=== PATIENT | female | born 1985 | race Caucasian/White ===

== ENCOUNTER 2024-10-21 08:44 | Outpatient (CLI) | payer OTHER, SELFPAY ==
[2024-10-21 09:03] LABS: Hematocrit 40.8 % (37.0-47.0); Hemoglobin 13.4 g/dL (12.0-15.0)
--- OUTSIDE RECORDS SUMMARY | 2024-10-21 09:08 | XMS_ITS | Patient Health Summary ---
Author Organization [facility] Address [address] [place] [address] Care Team Providers Care Practice Consultant Name Role Phone Sotero Krause MD Primary Care Provider [phone] Note from [facility],non-owned Affiliates and Associated Physician Practices is amultiple site organization consisting of ambulatory clinics and hospital sitesin [place], [place], [place] and [place]. This disclosure is being madepursuant to the Care Everywhere program and may not contain all information available regarding this patient. Last updated 18.[facility] Allergies * Chlorhexidine(Rash) -Medium Criticality * Tramadol(Nausea and/or Vomiting) * vicryl sutures [Other](Other) Medications * Be aware that medications may not be up to date on this document. Alwaysverify current medications with the patient. * escitalopram (Lexapro) 20 MG tablet Take 1 (one) tablet by mouth at bedtime * ARIPiprazole (Abilify) 5 MG tablet(Started 06/25/2024) Take 1 (one) tablet by mouth once daily * multivitamin daily tablet Take 1 (one) tablet by mouth daily with food Active Problems No known active problems Social History Tobacco Use Types Packs/Day Years Used Date Smoking Tobacco: Former Cigarettes Smokeless Tobacco: Never Comments:Quit 06/17/24 PHQ-2 Answer Date Recorded Patient Health Questionnaire-2 Score 3 06/29/2024 Hunger Vital Sign Answer Date Recorded Within the past 12 months, y ou worried that your food would run out before you got the money to buy more. Never true 06/29/20 24 Within the past 12 months, t he food you bought just didn't last and you didn't have money to get more. Never true 06/29/2024 Sex and Gender Information Value Date Recorded Sex Assigned at Not on file Gender Identity Not on file Sexual Orientation Not on file Last Filed Vital Signs Vital Sign Reading Time Taken Comments Blood Pressure 111/57 06/29/2024 3:06 PM PSYCHIATRIC ATTENDANT Pulse 74 06/29/2024 3:06 PM PSYCHIATRIC ATTENDANT Temperature 36.9 C (98.4 F) 06/29/2024 3:06 PM PSYCHIATRIC ATTENDANT Respiratory Rate - - Oxygen Saturation 99% 06/29/2024 3:06 PM PSYCHIATRIC ATTENDANT Inhaled Oxygen Concentration - - Weight 77.5 kg (170 lb 12.8 oz) 06/29/2024 3:06 PM PSYCHIATRIC ATTENDANT Height 160 cm (5' 3 ) 06/29/2024 3:06 PM PSYCHIATRIC ATTENDANT Body Mass Index 30.26 06/29/2024 3:06 PM PSYCHIATRIC ATTENDANT Procedures * BENNY URINE(Performed 06/29/2024) Performed for Iron deficiency anemia due to chronic blood loss * URINALYSIS REFLEX TO MICROSCOPIC NO CULTURE(Performed 06/29/2024) Performed for Iron deficiency anemia due to chronic blood loss * VON WILLEBRAND EVALUATION PANEL(Performed 06/29/2024) Performed for Iron deficiency anemia due to chronic blood loss * PATHOLOGY PERIPHERAL SMEAR REVIEW(Performed 06/29/2024) Performed for Iron deficiency anemia due to chronic blood loss * CBC W AUTO DIFFERENTIAL(Performed 06/29/2024) Performed for Iron deficiency anemia due to chronic blood loss, Menorrhagia with regular cycle, Irritable bowel syndrome with diarrhea, Gastroesophageal reflux disease without esophagitis, History ofcigarette smoking, Status post sleeve gastrectomy * COMPREHENSIVE METABOLIC PANEL(Performed 06/29/2024) Performed for Iron deficiency anemia due to chronic blood loss * LDH BLOOD(Performed 06/29/2024) Performed for Iron deficiency anemia due to chronic blood loss * CELIAC DISEASE COMPREHENSIVE(Performed 06/29/2024) Performed for Iron deficiency anemia due to chronic blood loss * VITAMIN B12 FOLATE PANEL(Performed 06/29/2024) Performed for Iron deficiency anemia due to chronic blood loss * COPPER BLOOD(Performed 06/29/2024) Performed for Iron deficiency anemia due to chronic blood loss * GERARD BLOOD SCREEN W/REFLEX TITER(Performed 06/29/2024) Performed for Iron deficiency anemia due to chronic blood loss * RHEUMATOID FACTOR BLOOD QUANTITATIVE(Performed 06/29/2024) Performed for Iron deficiency anemia due to chronic blood loss * IMMUNOFIXATION BLOOD(Performed 06/29/2024) Performed for Iron deficiency anemia due to chronic blood loss * IRON + TIBC + FERRITIN(Performed 06/29/2024) Performed for Iron deficiency anemia due to chronic blood loss * CBC W AUTO DIFFERENTIAL (CANCER CARE)(Performed 06/29/2024) Performed for Iron deficiency anemia due to chronic blood loss * RETIC COUNT(Performed 06/29/2024) Performed for Iron deficiency anemia due to chronic blood loss Results * URINALYSIS REFLEX TO MICROSCOPIC NO CULTURE (06/29/2024 4:28 PM PSYCHIATRIC ATTENDANT) Pathologist [facility] Specific [place] UA 1.020 1.005 - 1.030 [facility] ACCOUNT BILL pH UA 5.5 5.0 - 7.5 [facility] ACCOUNT BILL Color UA Yellow Yellow [facility] ACCOUNT BILL Appearance Clear Clear [facility] ACCOUNT BILL Leukocyte UA Negative Negative [facility] ACCOUNT BILL Protein UA Negative Negative/Tra ce [facility] ACCOUNT BILL Glucose UA Negative Negative [facility] ACCOUNT BILL Ketone UA Negative Negative [facility] ACCOUNT BILL Occult Blood Urine Negative Negative [facility] ACCOUNT BILL Bilirubin UA Negative Negative [facility] ACCOUNT BILL Urobilinogen 0.2 0.2 - 1.0 mg/dL [facility] ACCOUNT BILL Nitrite UA Negative Negative [facility] ACCOUNT BILL Microscopic Examination Urine Comment [facility] ACCOUNT BILL Comment:Microscopic not loree cated and not performed. Urine URINE SPECIMEN OBTAINED BY CLEAN CATCH PROCEDURE / Unknown 06/29/2024 4:28 PM PSYCHIATRIC ATTENDANT 06/29/2024 Comment:Urine - clean catch R Narrative [facility] ACCOUNT BILL - 07/06/2024 9:07 PM PSYCHIATRIC ATTENDANT Performed at: 01 - [facility] [address] [id number] Vortex Operator: Chandler Ruzi PhD, Phone: [phone] Marc Griffin MD LAB - URINALYSIS ORD ERABLES [facility] ACCOUNT BILL [address] [place] [address] * BENNY URINE (06/29/2024 4:28 PM PSYCHIATRIC ATTENDANT) Interpretation BENNY Comment [facility] ACCOUNT BILL Comment:No monoclonality det ected. Urine URINE / Unknown 06/29/2024 4 :28 PM PSYCHIATRIC ATTENDANT 06/29/2024 Comment:Urine - clean catch R Narrative [facility] ACCOUNT BILL - 07/06/2024 9:07 PM PSYCHIATRIC ATTENDANT [facility] [address] [place], [place] [id number] Vortex Operator: Chandler Ruiz PhD, Phone: [phone] Marc Griffin MD LAB - URINE CHEMISTR Y ORDERABLES [facility] ACCOUNT BILL [address] [place] [address] * VON WILLEBRAND EVALUATION PANEL (06/29/2024 4:28 PM PSYCHIATRIC ATTENDANT) Factor VIII Activity 109 56 - 140 % [facility] INSURANCE BILL von Willebrand Factor Antigen 111 50 - 200 % [facility] INSURANCE BILL von Willebrand Factor Activity 115 50 - 200 % [facility] INSURANCE BILL Comment: [facility]formed at: - [facility] Digital [address] [place], [place] [id number] Vortex Operator: Delaney Ewing MD, Phone: [phone] Interpretation Note [facility] INSURANCE BILL Comment: COAGULATION: VON WILLEBRAND FACTOR ASSESSMENT CURRENT RESULTS ASSESSMENT The VWF:Ag is normal. The VWF:Activity is normal. The FVIII is normal. VON WILLEBRAND FACTOR ASSESSMENT CURRENT RESULTS INTERPRETATION - These results are not consistent with a diagnosis of von Willebrand Disease. VON WILLEBRAND FACTOR ASSESSMENT - Results may be falsely elevated and possibly falsely normal as VWF and FVIII may increase in , in samples drawn from patients (particularly children) who are visibly stressed at the time of phlebotomy, as acute phase reactants, or in response to certain drug therapies such as desmopressin. Repeat testing may be necessary before excluding a diagnosis of VWD especially if the clinical suspicion is high for an underlying bleeding disorder. The setting for phlebotomy should be as calm as possible and patients should be encouraged to sit quietly prior to the blood draw. VON WILLEBRAND FACTOR ASSESSMENT DEFINITIONS - VWD - von Willebrand disease; VWF - von Willebrand factor; VWF:Ag - VWF antigen; VWF:Activity - VWF activity; FVIII - factor VIII activity. - For questions regarding panel interpretation, please contact [facility] at . DISCLAIMER These assessments and interpretations are provided as a convenience in support of the physician-patient relationship and are not intended to replace the physician's clinical judgment. They are derived from national guidelines in addition to other evidence and expert opinion. The clinician should consider this information within the context of clinical opinion and the individual patient. SEE GUIDANCE FOR VON WILLEBRAND FACTOR ASSESSMENT: (1) The National Heart, Lung and Blood [place]. The Diagnosis, Evaluation and Management of von Willebrand Disease. MD Justin: National Institutes of Health Publication 08-5832. 2007. Available at http://www.nhlbi.nih.gov/guidelines/vwd/. (2) David CHONG et al. Am J Hematol. 2009; 84(6):366-370. (3) Jonathan Bonilla et al. Haemophilia. 2004;10(3):199-217. (4) Teni CARLINE et al. Haemophilia. 2004; 10(3):218-231. Blood BLOOD SPECIMEN / Unknown 06/29/2024 4:28 PM PSYCHIATRIC ATTENDANT 06/29/2024 Comment:Blood Release to [facility] leonarda Drummond [facility] INSURANCE BILL - 07/01/2024 6:14 AM PSYCHIATRIC ATTENDANT Test(s) [id number] Willebrand Factor (vWF) Ag was developed and its performance characteristics determined by [facility]. It has not been cleared or approved by the Food and Drug Administration. Performed at: 01 - [address] [id number] Vortex Operator: Michelle Foreman MD, Phone: [phone] Marc Griffin MD LAB - COAGULATION OR DERABLES [facility] INSURANCE BILL [address] [place] [address] * (ABNORMAL) IRON + TIBC + FERRITIN (06/29/2024 4:27 PM PSYCHIATRIC ATTENDANT) Pathologist [facility] TIBC 222(L) 250 - 450 ug/dL [facility] ACCOUNT BILL UIBC 162 131 - 425 ug/dL [facility] ACCOUNT BILL Iron 60 27 - 159 ug/dL [facility] ACCOUNT BILL Iron Saturation 27 15 - 55 % [facility] ACCOUNT BILL Ferritin 126 15 - 150 ng/mL [facility] ACCOUNT BILL Blood BLOOD SPECIMEN / Unknown 06/29/2024 4:27 PM PSYCHIATRIC ATTENDANT 06/29/2024 Comment:Blood Release to pat i Narrative [facility] ACCOUNT BILL - 06/30/2024 10:13 AM PSYCHIATRIC ATTENDANT Performed at: 01 - [facility] [address] [id number] Vortex Operator: Chandler Ruiz PhD, Phone: [phone] Marc Griffin MD LAB - CHEMISTRY MARYANN BARTLETT Performing Organization Address City/[facility]/ZIP Co de Phone Number [facility] ACCOUNT BILL [address] [place] [address] * IMMUNOFIXATION BLOOD (06/29/2024 4:27 PM PSYCHIATRIC ATTENDANT) [facility] Immunofixation Result Comment [facility] ACCOUNT BILL Comment:No monoclonality det ected. IgG Quantitative 834 586 - 1,602 mg/dL [facility] ACCOUNT BILL IgM Quantitative 92 26 - 217 mg/dL [facility] ACCOUNT BILL Blood BLOOD SPECIMEN / Unknown 06/29/2024 4:27 PM PSYCHIATRIC ATTENDANT 06/29/2024 Comment:Blood Release to pat i Narrative [facility] ACCOUNT BILL - 07/01/2024 3:11 PM PSYCHIATRIC ATTENDANT Performed at: 01 - [facility] [address] [id number] Vortex Operator: Chanlder Ruiz PhD, Phone: [phone] Marc Griffin MD LAB - CHEMISTRY MARYANN BARTLETT Performing Organization Address City/[facility]/ZIP Co de Phone Number [facility] ACCOUNT BILL [address] [place] [address] * CELIAC DISEASE COMPREHENSIVE (06/29/2024 4:27 PM PSYCHIATRIC ATTENDANT) Antigliadin Antibody IgA 3 0 - 19 units [facility] ACCOUNT BILL Comment: Negative 0 - 19 Weak Positive 20 - 30 Moderate to Strong Positive >30 Gliadin Deamidated Antibody IgG 2 0 - 19 units [facility] ACCOUNT BILL Comment: Negative 0 - 19 Weak Positive 20 - 30 Moderate to Strong Positive >30 TTG Antibody IgA <2 0 - 3 U/mL [facility] ACCOUNT BILL Comment: Negative 0 - 3 Weak Positive 4 - 10 Positive >10 Tissue Transglutaminase (tTG) has been identified as the endomysial antigen. Studies have demonstr- ated that endomysial IgA antibodies have over 99% specificity for gluten sensitive enteropathy. TTG Antibody IgG <2 0 - 5 U/mL [facility] ACCOUNT BILL Comment: Negative 0 - 5 Weak Positive 6 - 9 Positive >9 Endomysial Antibody IgA Negative Negative [facility] ACCOUNT BILL IgA Quantitative 140 87 - 352 mg/dL [facility] ACCOUNT BILL Blood BLOOD SPECIMEN / Unknown 06/29/2024 4:27 PM PSYCHIATRIC ATTENDANT 06/29/2024 Comment:Blood Release to [facility] i Narrative [facility] ACCOUNT BILL - 07/01/2024 8:21 AM PSYCHIATRIC ATTENDANT [facility]formed [facility]: - [facility] [address] [place] [id number] Vortex Operator: Chandler Ruiz PhD, Phone: [phone] Marc Griffin MD LAB - CHEMISTRY MARYANN BARTLETT [facility] ACCOUNT BILL [address] [place] [address] * RHEUMATOID FACTOR BLOOD QUANTITATIVE (06/29/2024 4:27 PM PSYCHIATRIC ATTENDANT) Rheumatoid Factor <13 <30 IU/mL [facility] ACCOUNT BILL Blood BLOOD SPECIMEN / Unknown 06/29/2024 4:27 PM PSYCHIATRIC ATTENDANT 06/29/2024 Comment:Blood Release to pat i Narrative [facility] ACCOUNT BILL - 06/29/2024 9:07 PM PSYCHIATRIC ATTENDANT Performed at: [address] [place] [address] [address] [place], [place] [id number] Vortex Operator: Jairon Soto MD, Phone: [phone] Marc Griffin MD LAB - CHEMISTRY MARYANN BARTLETT [facility] ACCOUNT BILL [address] [place] [address] * GERARD BLOOD SCREEN W/REFLEX TITER (06/29/2024 4:27 PM PSYCHIATRIC ATTENDANT) GERARD Negative Negative [facility] ACCOUNT BILL Comment: Methodology: Indirect Immunofluorescence Assay (IFA) utilfransico sharma Hep-2-Gamma cells. Blood BLOOD SPECIMEN / Unknown 06/29/2024 4:27 PM PSYCHIATRIC ATTENDANT 06/29/2024 Comment:Blood Release to pa ti Narrative [facility] ACCOUNT BILL - 06/30/2024 1:10 PM PSYCHIATRIC ATTENDANT Performed at: [address] [place] [id number] Vortex Operator: Jairon Soto MD, Phone: [phone] Marc Griffin MD LAB - CHEMISTRY MARYANN BARTLETT Performing Organization Address [facility] Co de Phone Number [facility] ACCOUNT BILL [address] [place] [address] * COPPER BLOOD (06/29/2024 4:27 PM PSYCHIATRIC ATTENDANT) Pathologist [facility] Copper 80 80 - 158 ug/dL [facility] ACCOUNT BILL Comment:Detection Limit = 5 Blood BLOOD SPECIMEN / Unknown 06/29/2024 4:27 PM PSYCHIATRIC ATTENDANT 06/29/2024 Comment:Blood Release to pat i Narrative [facility] ACCOUNT BILL - 07/01/2024 9:07 PM PSYCHIATRIC ATTENDANT Test(s) [id number]-[id number], Serum or Plasma was developed and its performance characteristics determined by [facility]. It has not been cleared or approved by the Food and Drug Administration. Performed at: [address] [id number] Vortex Operator: Michelle Foreman MD, Phone: [phone] Marc Griffin MD LAB - CHEMISTRY MARYANN BARTLETT Performing Organization Address City/[facility]/ZIP Co de Phone Number [facility] ACCOUNT BILL [address] [place] [address] * PATHOLOGY PERIPHERAL SMEAR REVIEW (06/29/2024 4:27 PM PSYCHIATRIC ATTENDANT) Pathologist [facility] Path Review Confirmed 06/30/2024 12:02 PM [facility] Blood BLOOD SPECIMEN / Unknown Venipuncture / Unknown 06/29/2024 4:27 PM PSYCHIATRIC ATTENDANT 06/29/2024 5:28 PM PSYCHIATRIC ATTENDANT Narrative [facility] - 06/30/2024 12:02 PM PSYCHIATRIC ATTENDANT Final Diagnosis- Peripheral blood smear review: 1. Essentially unremarkable CBC and peripheral blood smear Clinical History: 39-year-old woman with menorrhagia and chronic iron deficiency anemia. History of sleeve gastrectomy in 2014 that necessitated parental iron infusions beginning in 2021. Peripheral Smear Description: White blood cells are present in adequate numbers with a differential of 64 percent neutrophils, 28 percent lymphocytes, 4 percent monocytes, and 4 percent eosinophils. Dyspoietic myeloid elements and blasts are not present. The platelets are present in adequate numbers and are morphologically unremarkable. Test Performed By: Jairon Soto MD 06/30/2024 11:55 AM Marc Griffin MD LAB - PATHOLOGY/CYTO LOGY ORDERABLES [facility] [address] [place] [address] * CBC WITH DIFFERENTIAL (06/29/2024 4:27 PM PSYCHIATRIC ATTENDANT) Pathologist [facility] WBC 6.7 4.0 - 10.7 x10E9/L 06/29/2024 6:19 PM [facility] RBC Count 4.13 3.90 - 5.20 x10E12/L 06/29/2024 6:19 PM [facility] Hemoglobin 12.9 11.9 - 15.8 g/dL 06/29/2024 6:19 PM [facility] Hematocrit 39.7 34.8 - 46.1 % 06/29/2024 6:19 PM [facility] MCV 96.1 80.0 - 98.0 fL 06/29/2024 6:19 PM [facility] MCH 31.2 26.7 - 33.6 pg 06/29/2024 6:19 PM [facility] MCHC 32.5 31.7 - 36.3 g/dL 06/29/2024 6:19 PM [facility] RDW-CV 13.2 11.3 - 14.8 % 06/29/2024 6:19 PM [facility] Platelet Count 237 150 - 420 x10E9/L 06/29/2024 6:19 PM [facility] MPV 10.5 7.8 - 11.4 fL 06/29/2024 6:19 PM [facility] Neutrophil % 59.8 41.0 - 74.0 % 06/29/2024 6:19 PM [facility] Lymphocyte % 29.2 17.0 - 47.0 % 06/29/2024 6:19 PM [facility] Monocyte % 6.5 3.0 - 11.0 % 06/29/2024 6:19 PM [facility] Eosinophil % 3.3 0.0 - 7.0 % 06/29/2024 6:19 PM [facility] Basophil % 0.6 0.0 - 1.6 % 06/29/2024 6:19 PM [facility] Immature Granulocytes % 0.6 0.0 - 1.0 % 06/29/2024 6:19 PM [facility] Neutrophil Absolute 4.03 1.60 - 7.50 x10E9/L 06/29/2024 6:19 PM [facility] Lymphocyte Absolute 1.97 1.00 - 4.40 x10E9/L 06/29/2024 6:19 PM [facility] Monocyte Absolute 0.44 0.15 - 1.00 x10E9/L 06/29/2024 6:19 PM [facility] Eosinophil Absolute 0.22 0.00 - 0.60 x10E9/L 06/29/2024 6:19 PM [facility] Basophil Absolute 0.04 0.00 - 0.13 x10E9/L 06/29/2024 6:19 PM [facility] Blood BLOOD SPECIMEN / Unknown Venipuncture / Unknown 06/29/2024 4:27 PM PSYCHIATRIC ATTENDANT 06/29/2024 5:28 PM PSYCHIATRIC ATTENDANT Marc Griffin MD LAB - HEMATOLOGY ORD ERABLES [facility] [address] [place] [address] * (ABNORMAL) COMPREHENSIVE METABOLIC PANEL (06/29/2024 4:27 PM PSYCHIATRIC ATTENDANT) Pathologist [facility] Glucose 104(H) 70 - 99 mg/dL [facility] ACCOUNT BILL BUN 13 5.3 - 18.7 mg/dL [facility] ACCOUNT BILL Creatinine 0.80 0.57 - 1.11 mg/dL [facility] ACCOUNT BILL eGFR by CKD-EPI >90 >=90 mL/min/1.7 3 m2 [facility] ACCOUNT BILL Sodium 139 136 - 145 mmol/L [facility] ACCOUNT BILL Potassium 4.3 3.5 - 5.1 mmol/L [facility] ACCOUNT BILL Chloride 111(H) 98 - 107 mmol/L [facility] ACCOUNT BILL CO2 22 22 - 29 mmol/L [facility] ACCOUNT BILL Calcium 9.6 8.4 - 10.4 mg/dL [facility] ACCOUNT BILL Protein Total 6.2(L) 6.4 - 8.3 gm/dL [facility] ACCOUNT BILL Albumin 3.8 3.4 - 5.0 gm/dL [facility] ACCOUNT BILL Bilirubin Total 0.1(L) 0.2 - 1.2 mg/dL [facility] ACCOUNT BILL Alkaline Phosphatase 47 40 - 150 U/L [facility] ACCOUNT BILL AST 14 5 - 34 U/L [facility] ACCOUNT BILL ALT 19 0 - 55 U/L [facility] ACCOUNT BILL Blood BLOOD SPECIMEN / Unknown 06/29/2024 4:27 PM PSYCHIATRIC ATTENDANT 06/29/2024 Comment:Blood Release to pat i Narrative [facility] ACCOUNT BILL - 06/29/2024 9:07 PM PSYCHIATRIC ATTENDANT Performed at: [address] [place] [address] [place] [id number] Vortex Operator: Jairon Soto MD, Phone: [phone] Marc Griffin MD LAB - CHEMISTRY MARYANN BARTLETT [facility] ACCOUNT BILL [address] [place] [address] * LDH BLOOD (06/29/2024 4:27 PM PSYCHIATRIC ATTENDANT) LDH 157 125 - 220 U/L [facility] ACCOUNT BILL Blood BLOOD SPECIMEN / Unknown 06/29/2024 4:27 PM PSYCHIATRIC ATTENDANT 06/29/2024 Comment:Blood Release to pat i Narrative [facility] ACCOUNT BILL - 06/29/2024 9:07 PM PSYCHIATRIC ATTENDANT Performed at: [address] [place] [id number] Vortex Operator: Jairon Soto MD, Phone: [phone] Marc Griffin MD LAB - CHEMISTRY MARYANN BARTLETT Performing Organization Address City/[facility]/ZIP Co de Phone Number [facility] ACCOUNT BILL [address] [place] [address] * VITAMIN B12 FOLATE PANEL (06/29/2024 4:27 PM PSYCHIATRIC ATTENDANT) Vitamin B12 673 213 - 816 pg/mL [facility] ACCOUNT BILL Folate 11.1 7.0 - 31.4 ng/mL [facility] ACCOUNT BILL Blood BLOOD SPECIMEN / Unknown 06/29/2024 4:27 PM PSYCHIATRIC ATTENDANT 06/29/2024 Comment:Blood Release to pat i Narrative [facility] ACCOUNT BILL - 06/29/2024 11:07 PM PSYCHIATRIC ATTENDANT Performed at: [address] [place] [id number] Vortex Operator: Jairon Soto MD, Phone: [phone] Marc Griffin MD LAB - CHEMISTRY MARYANN BARTLETT Performing Organization Address City/[facility]/ZIP Co de Phone Number [facility] ACCOUNT BILL [address] [place] [address] * CBC W AUTO DIFFERENTIAL (CANCER CARE) (06/29/2024 4:13 PM PSYCHIATRIC ATTENDANT) WBC 6.9 4.4 - 10.7 x10E9/L 06/29/2024 4:25 PM PSYCHIATRIC ATTENDANT [facility] Neutrophils % 60.8 44.0 - 73.0 % 06/29/2024 4:25 PM PSYCHIATRIC ATTENDANT [facility] Lymphocytes % 28.0 20.0 - 43.0 % 06/29/2024 4:25 PM PSYCHIATRIC ATTENDANT [facility] Monocytes % 6.4 5.0 - 13.0 % 06/29/2024 4:25 PM PSYCHIATRIC ATTENDANT [facility] Eosinophils % 3.8 0.0 - 6.0 % 06/29/2024 4:25 PM PSYCHIATRIC ATTENDANT [facility] Basophils % 0.4 0.0 - 2.0 % 06/29/2024 4:25 PM PSYCHIATRIC ATTENDANT [facility] Immature Granulocytes 0.6 <=1 % 06/29/2024 4:25 PM PSYCHIATRIC ATTENDANT [facility] Neutrophil Absolute 4.20 2.01 - 7.14 x10E9/L 06/29/2024 4:25 PM PSYCHIATRIC ATTENDANT [facility] Lymphocytes Absolute 1.93 1.07 - 3.94 x10E9/L 06/29/2024 4:25 PM PSYCHIATRIC ATTENDANT [facility] Monocytes Absolute 0.44 0.26 - 1.07 x10E9/L 06/29/2024 4:25 PM PSYCHIATRIC ATTENDANT [facility] Eosinophils Absolute 0.26 0 - 0.47 x10E9/L 06/29/2024 4:25 PM PSYCHIATRIC ATTENDANT [facility] Basophils Absolute 0.03 0 - 0.08 x10E9/L 06/29/2024 4:25 PM PSYCHIATRIC ATTENDANT [facility] RBC 3.98 3.80 - 5.20 x10E12/L 06/29/2024 4:25 PM PSYCHIATRIC ATTENDANT [facility] Hemoglobin 12.7 12.0 - 15.6 gm/dL 06/29/2024 4:25 PM PSYCHIATRIC ATTENDANT [facility] Hematocrit 37.6 35.9 - 45.5 % 06/29/2024 4:25 PM PSYCHIATRIC ATTENDANT [facility] MCV 94.5 80.7 - 98.3 fl 06/29/2024 4:25 PM PSYCHIATRIC ATTENDANT [facility] MCH 31.9 26.7 - 34.0 pg 06/29/2024 4:25 PM PSYCHIATRIC ATTENDANT [facility] MCHC 33.8 30.8 - 35.9 gm/dL 06/29/2024 4:25 PM PSYCHIATRIC ATTENDANT [facility] RDW-CV 13.4 12.1 - 14.9 % 06/29/2024 4:25 PM PSYCHIATRIC ATTENDANT [facility] Platelet Count 222 153 - 416 x10E9/L 06/29/2024 4:25 PM PSYCHIATRIC ATTENDANT [facility] MPV 9.9 9.4 - 12.9 fl 06/29/2024 4:25 PM PSYCHIATRIC ATTENDANT [facility] NRBC 0.0 <=0 /100 WBC 06/29/2024 4:25 PM PSYCHIATRIC ATTENDANT [facility] Blood BLOOD SPECIMEN / Unknown 06/29/2024 4:13 PM PSYCHIATRIC ATTENDANT 06/29/2024 4:13 PM PSYCHIATRIC ATTENDANT Marc Griffin MD LAB - HEMATOLOGY ORD ERABLES Performing Organization Address City/[facility] Co de Phone Number [facility] [address] [place] [address] * (ABNORMAL) RETIC COUNT (06/29/2024 4:13 PM PSYCHIATRIC ATTENDANT) Pathologist [facility] Reticulocyte Count 1.63 0.5 - 1.7 % 06/29/2024 4:25 PM PSYCHIATRIC ATTENDANT [facility] Reticulocyte Immature Fractionated 4.5(L) 9.3 - 17.4 % 06/29/2024 4:[address] [facility] Blood BLOOD SPECIMEN / Unknown 06/29/2024 4:13 PM PSYCHIATRIC ATTENDANT 06/29/2024 4:13 PM PSYCHIATRIC ATTENDANT Marc Griffin MD LAB - HEMATOLOGY ORD ERABLES Performing Organization Address City/[facility]/ZIP Co de Phone Number [facility] [address] [place] [address] Care Teams Practice Consultant Relationship Specialty Start Date End Date Sotero Krause MD [address] [place] [id number] PCP - General Family Medicine 06/20/24
--- OUTSIDE RECORDS SUMMARY | 2024-10-21 09:08 | XMS_ITS | Clinical Summary ---
Author Organization [facility] Address [address] [place] [address] Care Team Providers Care Customer Program Manager Name Role Phone Sotero Krause MD Primary Care Provider [phone] Allergies Active Allergy Reactions Criticality Noted Date Comments Chlorhexidine Rash,Unknown Low 12/19/2021 Tramadol Nausea and Vomiting,Unknown 04/14/20 22 Medications omeprazole (PRILOSEC) 20 MG capsule Take 1 capsule (20 mg total) by mouth daily. Active Active Problems Problem Noted Date Diagnosed Date Other iron deficiency anemia 04/11/2024 Iron deficiency anemia, unspecified 12/12/2021 Resolved Problems Problem Noted Date Diagnosed Date Resolved Date Female hirsutism 04/19/2021 04/24/2024 Tobacco user 04/19/2021 04/24/2024 Depression 05/16/2015 04/24/2024 Gastroesophageal reflux dise ase without esophagitis 05/16/2015 04/24/2024 Irritable bowel syndrome 05/16/201503/2024 Morbid obesity 05/16/2015 04/24/2024 Abdominal pain 12/13/2014 04/24/2024 Acute on chronic cholecystitis 12/13/2014 04/24/2024 Biliary sludge 12/13/2014 04/24/2024 Encounter for preventive health examination 12/12/2014 04/24/2024 Social History Tobacco Use Types Packs/Day Years Used Date Smoking Tobacco: Never Assessed Comments Unknown Sex and Gender Information Value Date Recorded Sex Assigned at Not on file Legal Sex Female 11:27 PM [employer]ORY EXP[employer] Gender Identity Not on file Sexual Orientation Not on file Last Filed Vital Signs Vital Sign Reading Time Taken Comments Blood Pressure 104/61 05/06/2024 8:56 AM CDT Pulse 67 05/06/2024 8:56 AM CDT Temperature 36.4 C (97.5 F) 05/06/2024 8:56 AM CDT Respiratory Rate 18 05/06/2024 8:56 AM CDT Oxygen Saturation 99% 12/26/2021 9:56 AM CDT Inhaled Oxygen Concentration - - Weight 71.7 kg (158 lb) 04/24/2024 8:40 AM CDT Height 160 cm (5' 3 ) 04/24/2024 8:40 AM CDT Body Mass Index 27.99 04/24/2024 8:40 AM CDT Plan of Treatment Health Maintenance Due Date Last Done Comments Annual Physical 1987 Hepatitis C 2002 DTaP, Tdap and Td Vaccines ( 1 - Tdap) 2003 Hepatitis B Vaccines (1 of 3 - 19+ 3-dose series) 2003 Cervical Cancer Screening Pa p with HPV Testing (Age 30 to 64) Every 5 Years 2014 COVID-19 Vaccine (3 - 2023-2 5 season) 2024 09/15/2020, 08/18/2020 Influenza Adult (#1) 2024 05/22/2014 Mammogram Screening 2024 Cervical Cancer Screening Pa p Smear (Age 30 to 64) Every 3 Years 03/18/2027 03/18/2024 Cervical Cancer Screening [facility] HPV 03/18/2027 HPV Vaccines Aged Out No longer eligi ble based on patient's age to complete this topic Meningococcal B Vaccine Aged Out No l onger eligible based on patient's age to complete this topic Meningococcal Vaccine Aged Out No pablo tyron eligible based on patient's age to complete this topic Pneumococcal Vaccine: Pediatrics (0 to 5 Years) and At-Risk Patients (6 to 64 Years) Aged Out No longer eligible b ased on patient's age to complete this topic RSV Immunizations Under 20 Months Aged Out No longer eligible b ased on patient's age to complete this topic Insurance [employer] [facility] Care Teams Customer Program Manager Relationship Specialty Start Date End Date Sotero Krause MD [address] [place] [address] PCP - General FAMILY PRACTICE 05/20/21
--- OUTSIDE RECORDS SUMMARY | 2024-10-21 09:08 | XMS_ITS | Encounter Summary ---
Author Organization [facility] Address [address] [place] [id number] Care Team Providers Care Barrel Maker Name Role Phone Sotero Krause MD Primary Care Provider [phone] Encounter Details Date Type Department Care Team (Late st Contact Info) Description 01/22/2019 Abstract [facility] CONVERSION [address] [place] [address] , Generic Conversion, Social History Tobacco Use Types Packs/Day Years Used Date Smoking Tobacco: Never Assessed Comments Unknown Sex and Gender Information Value Date Recorded Sex Assigned at Not on file Legal Sex Female 11:27 PM [employer] Gender Identity Not on file Sexual Orientation Not on file documented as of this encounter Plan of Treatment Not on file documented as of this encounter Visit Diagnoses Not on filedocumented in this encounter Additional Health Concerns Infection Onset Date Last Indicated Resolved Time COVID-19 Rule Out 05/20/2021 05/20/2021 05/20/2021 11:52 AM CDT COVID-19 Rule Out 05/20/2021 05/20/2021 05/21/2021 8:13 PM CDT documented as of this encounter Care Teams Barrel Maker Relationship Specialty Start Date End Date Sotero Krause MD [address] [place] [address] PCP - General FAMILY PRACTICE 05/20/21 documented as of this encounter
--- OUTSIDE RECORDS SUMMARY | 2024-10-21 09:08 | XMS_ITS | Encounter Summary ---
Author Organization [facility] Address [address] [place] [address] Care Team Providers Care Center Manager Name Role Phone Sotero Krause MD Primary Care Provider [phone] Encounter Details Date Type Department Care Team (Late st Contact Info) Description 10/31/2017 Abstract [facility] CONVERSION [address] [place] [address] , Generic Conversion, Social History Tobacco Use Types Packs/Day Years Used Date Smoking Tobacco: Never Assessed Comments Unknown Sex and Gender Information Value Date Recorded Sex Assigned at Not on file Legal Sex Female 11:27 PM MANAGED CARE PROVIDER Gender Identity Not on file Sexual Orientation [...] documented as of this encounter Care Teams Center Manager Relationship Specialty Start Date End Date Sotero Krause MD [address] [place] [address] PCP - General FAMILY PRACTICE 05/20/21 documented as of this encounter
--- OUTSIDE RECORDS SUMMARY | 2024-10-21 09:08 | XMS_ITS | Data Portability ---
Author Organization [facility] [place] Address [address] [place] [address] Care Team Providers Care Brick Paver Name Role Phone KIERRAANIYAH CALDWELL Primary Care Provider Assessment Encounter Date Assessment Date Assessment LastModified by Organization Details LastModified Time 04/19/2021 04/19/2021 healthy female exam patient declines std testing pap due 2022 mammogram at 39 contraception- vasectomy PCOS labs spironolactone to start, BMP in 1 month FU 1 year or prn [email or web address] Not available 04/19/2021 14:30:38 05/10/2021 05/10/2021 DIscussed PCOS in depth, including diagnosis, hallmarks, medical and fertility implications, risk of endometrial hyperplasia or malignancy with oligomenorrhea, treatments. For now, doesn't require treatment as periods relatively regular and no further pregnancies planned If starts spironolactone, BMP couple weeks after restart OTC GERD medication WWE due 04/2022 [email or web address] Not available 05/10/2021 13:02:04 03/18/2024 03/18/2024 Annual gynecological exam performed. Patient will come back in a year unless there are new symptoms. Not available 03/17/2024 12:31:40 Plan of Treatment Reminders Order Date Submit Date Provider Last Modified By Organization Details Last Modified Time Details Appointments SURG PRE OP 2024 10:15A Irene YUEN MD Not available Not available Not available [facility] 2024 07:30A Irene YUEN MD Not available Not available Not available SURG POST OP 2024 01:00P Irene YUEN MD Not available Not available Not available Lab dhea-sulf ate, serum 2023 024 [facility] (Lab), [address], [place], [address], 03/30/2024 16:01:07 hormone panel, serum or plasma 2023 024 [facility] (Lab), [address], [place], [address], 03/30/2024 16:01:09 progester one, serum 2023 024 [facility] (Lab), [address], [place], [address], 03/30/2024 16:01:08 prolactin , serum 2023 024 [facility] (Lab), [address] [place], [address], 03/30/2024 16:01:08 shbg (sex hormone-b inding globulin) , serum 2023 024 [facility] (Lab), [address], [place], [address], 03/30/2024 16:01:09 TSH, serum or plasma 2023 024 [facility] (Lab), [address], [place], [address], 03/30/2024 16:01:10 testoster one free/test osterone total, ratio, serum 2023 024 [facility] (Lab), [address] [place], [address], 03/30/2024 16:01:10 BMP, blood 2020 021 [facility] (Lab), [address] [place], [address], 05/28/2021 02:20:44 dhea-sulf ate, serum 2020 021 [facility] (Lab), [address] [facility], [place], [address], 04/24/2021 00:04:41 HbA1c (hemoglob in A1c), blood 2020 021 [facility] (Lab), [address] [facility], [place], [address], 04/24/2021 00:04:42 testoster one free/test osterone total, ratio, serum 2020 021 [facility] (Lab), [address] [facility], [place], [address], 04/24/2021 00:04:42 Referral None recorded. Procedures None recorded. Surgeries None recorded. Imaging US, pelvis [address], [address], [place], [address], 04/02/2024 22:08:36 US, transvagi nal [email or web address], [facility] [address], [place], [address], 04/02/2024 22:08:36 MAMMO, screening , digital, bilateral 2023 024 [facility], [address], [address] [address], [place], [address], 10/02/2024 05:01:19 US, pelvis, complete 2023 024 [facility], [address], [place], [address], 09/25/2024 05:01:13 Medication Orders spironola ctone 100 mg tablet 2020 021 [facility] [place], [address], 03/18/2024 12:18:56 Patient TargetsNo targets recorded. Patient InstructionsNo instructions recorded. Reason for Referral None Reported. Results Created Date Observation Date Name Description Value Unit Range Abnormal Flag Note LastModifiedBy Organization Detail LastModifiedTime 04/19/20 21 04/19/2021 DHEA SULFA TE DHEA-sulfate 258 ug/dL Femal e Range s Age(y ) Range (ug/d L) 10-15 34-28 0 15-20 65-36 8 20-25 148-4 07 25-35 99-34 0 35-45 61-33 7 45-55 35-25 6 55-65 19-20 5 65-75 9-246 > 75 12-15 4 Not Available [facility] (Lab) [address] [facility], [place], [address], 04/24/2021 00:04:41 04/19/20 21 04/19/2021 HEMOG LOBIN A1C hemoglobin A1C 5.4 % 0-5.6 The Ameri can Diabe melissa Assoc iatio n recom mends that a prima ry goal of thera py gia d be a HBA1C of < 7% and that physi cians shoul d reeva luate the treat ment regim en in patie nts with HBA1C value s consi stent ly > 8%. <5.7% Jesica l 5.7 - 6.4% Incre ased risk for diabe melissa >=6.5 % Diagn ostic of diabe melissa <7.0% Goal of thera py >8.0% Actio n sugge sted Not Available [facility] (Lab) [address] [facility], [place], [address], 04/24/2021 00:04:41 04/19/20 21 04/19/2021 TESTO STERO NE, FREE( DIALY SIS) AND TOTAL (LC/M S/MS) testosterone , total 82 NG/dL 2-45 high For addit ional infor dennis tanner e refer to http: //kale archer.que stdia gnost ics.c om/fa q/Tot al Testo stero neLCM SMS (This link is being provi ded for infor matio nal/e ducat ional purpo ses only. ) This test was devel oped and its miriam tical perfo rmanc e carlie cteri stics have been deter mined by [employer]. It has not been clear ed or appro anaya by the FDA. This assay has been valid ated pursu ant to the CLIA regul ation s and is used for clini shanna purpo ses. Not Available [facility] (Lab) [address] [facility], [place], [address], 04/24/2021 00:04:42 04/19/2004/19/2021 TESTO STERO NE, FREE( DIALY SIS) AND TOTAL (LC/M S/MS) testosterone , free 3.6 pg/mL 0.1-6. 4 This test was devel oped and its miriam tical perfo rmanc e carlie cteri stics have been deter mined by [employer]. It has not been clear ed or appro anaya by the FDA. This assay has been valid ated pursu ant to the CLIA regul ation s and is used for clini shanna purpo ses. Perfo rming Organ izati on Jamiar stella n: Site ID: [id number] Name: [employer] [facility] [facility] Addre ss: [id number] [place] [address] Direc tor: Jyoti howell M.D. Not Available [facility] (Lab) [address] [facility], [place], [address], 04/24/2021 00:04:42 05/27/20 21 05/27/2021 BASIC METAB OLIC PANEL sodium 135 mmol/ L 133-14 6 Not Available [facility] (Lab) [address] [facility], [place], [address], 05/28/2021 02:20:44 05/27/20 21 05/27/2021 BASIC METAB OLIC PANEL potassium 4.4 mmol/ L 3.5-5. 1 Not Available [facility] (Lab) [address] [facility], [place], [address], 05/28/2021 02:20:44 05/27/20 21 05/27/2021 BASIC METAB OLIC PANEL chloride 102 mmol/ L 98-107 Not Available [facility] (Lab) [address] [facility], [place], [address], 05/28/2021 02:20:44 05/27/20 21 05/27/2021 BASIC METAB OLIC PANEL carbon dioxide 26 mmol/ L 21-31 Not Available [facility] (Lab) [address] [facility], [place], [address], 05/28/2021 02:20:44 05/27/20 21 05/27/2021 BASIC METAB OLIC PANEL anion gap 7 mmol/ L 4-13 Not Available [facility] (Lab) [address] [facility], [place], [address], 05/28/2021 02:20:44 05/27/20 21 05/27/2021 BASIC METAB OLIC PANEL blood urea nitrogen 10 mg/dL 7-25 Not Available [facility] (Lab) [address] [facility], [place], [address], 05/28/2021 02:20:44 05/27/20 21 05/27/2021 BASIC METAB OLIC PANEL creatinine 0.72 mg/dL 0.60-1 .30 Not Available [facility] (Lab) [address] [facility], [place], [address], 05/28/2021 02:20:44 05/27/20 21 05/27/2021 BASIC METAB OLIC PANEL GFR () 111 mL/mi n/1.7 3_m2 60-300 Not Available [facility] (Lab) [address] [facility], [place], [address], 05/28/2021 02:20:44 05/27/20 21 05/27/2021 BASIC METAB OLIC PANEL GFR (others) 92 mL/mi n/1.7 3_m2 60-300 Not Available [facility] (Lab) [address] [facility], [place], [address], 05/28/2021 02:20:44 05/27/20 21 05/27/2021 BASIC METAB OLIC PANEL calcium 9.3 mg/dL 8.3-10 .5 Not Available [facility] (Lab) [address] [facility], [place], [address], 05/28/2021 02:20:44 05/27/20 21 05/27/2021 BASIC METAB OLIC PANEL glucose 85 mg/dL 70-100 GFR(A frica n Ameri can) is repor alisson as 21% great er than GFR(O ther) . The use of race in kidne y funct ion estim ating equat ions is no longe r recom nivia d and may resul t in overe stima tion. In the near futur e an appro ach that disre gards race will be imple mente d. Not Available [facility] (Lab) [address] [facility], [place], [address], 05/28/2021 02:20:44 03/18/20 24 03/18/2024 IMAGE GUIDE D PAP AND HPV REGAR DLESS image guided Pap, HPV regardless of Pap result SEE RESULT S BELOW CASE REPOR T: Cytol ogy Gynec ologi shanna Repor t Case: [id number] Autho jaclyn ybarra Provi jackson: Urvashi Martinez, UNIQUE Colle cted: 03/18 1352 Order ing Locat ion: [place] Patho logy Recei anaya: 03/19 0317 First Scree n: Marifer Oneill Specleonarda men: Scree rubina Pap - Image d, Cervi x STATE MENT OF ADEQU ACY: Satis facto ry for evalu ation Trans forma tion zone compo nent prese nt ----- ----- ----- ----- ----- ----- ----- ----- ----- ----- ----- ----- ----- ----- ----- ----- ----- ---- FINAL DIAGN OSIS: Negat bryson for Intra epith elial Lesjf archer or Venkatesh reeder (NIL) . Elect jacqui luo by Marifer Oneill on 024 at 7:28 PM ----- ----- ----- ----- ----- ----- ----- ----- ----- ----- ----- ----- ----- ----- ----- ----- ----- ---- HPV RESUL TS: HPV mRNA E6/E7 : No HPV mRNA Detec alisson NOTE: This high risk HPV mRNA assay detec ts fourt een high- risk HPV types (16, 18, 31, 33, 35, 39, 45, 51, 52, 56, 58, 59, 66, 68) witho ut diffe renti ation . COMME NT: This speci men was revie wed by a Cytot echno logis t and/o r Patho logis t (as indic ated in this repor t) after evalu ation using the Thinp rep Imagi ng Syste m. CLINI SHANNA INFOR MATIO N: Menst rual Statu s: LMP (if appli cable ): 2023 Clini shanna Histo ry/Pr eviou s Pap: Type of Neopl fer (if appli cable ): Signi fican t Clini shanna Findi ngs: Other Histo ry: Hormo theresa (if appli cable ): PAP EDUCA GAVIN L NOTE: The Pap Test is a scree rubina test with an inher ent false negat bryson rate. Liqui d-bas ed sampl ing may decre ase, but will not elimi kalie, false negat bryson resul ts. A negat bryson resul t does not precl ude the prese nce and/o r devel opmen t of disea se, since the prese nce of abnor mal cells in the sampl e depen ds on the locat ion of the emma n and sampl ing techn ique. Christian nued regul ar scree rubina is the best metho d of cance r preve ntion . If repor alisson cytol ogic findi ng do not corre late with physi shanna and/o r histo rical findi ngs, furth er inves tigat ion is recom nivia d, as clini reyna hernadez nted. Not Available [facility] (Lab) [address], [place], [address], 03/24/2024 20:31:47 03/18/20 24 03/18/2024 DHEA SULFA TE DHEA-sulfate 227 ug/dL Femal e Range s Age(y ) Range (ug/d L) 10-15 34-28 0 15-20 65-36 8 20-25 148-4 07 25-35 99-34 0 35-45 61-33 7 45-55 35-25 6 55-65 19-20 5 65-75 9-246 > 75 12-15 4 Not Available [facility] (Lab) [address], [place], [address], 03/30/2024 16:01:07 03/18/20 24 03/18/2024 PROGE STERO NE progesterone 9.60 NG/mL This assay was perfo rmed using [employer]po ratio n reage nts and test kits. Value s obtai tiff with other assay metho ds or kits canno t be used inter spain eably . Femal e Proge stero ne Range s: Folli cular phasE 0.06- 0.89 ng/mL Ovula tion phasE 0.12- 12.00 ng/mL Lutea l phasE 1.83- 23.90 ng/mL Postm enopa usal <0.05 -0.13 ng/mL Healt hy Pregn ant Women 1st Trime ster 11.0- 44.30 2nd Trime ster 25.40 -83.3 0 3rd Trime ster 58.70 -214. 00 Not Available [facility] (Lab) [address], [place], [address], 03/30/2024 16:01:08 03/18/20 24 03/18/2024 PROLA CTIN prolactin, total 8.24 NG/mL 4.79-2 3.30 This assay was perfo rmed using [employer] ratio n reage nts and test kits. Value s obtai tiff with other assay metho ds or kits canno t be used inter [facility] . Not Available [facility] (Lab) [address] [place], [address], 03/30/2024 16:01:08 03/18/20 24 03/18/2024 FSH, LH, ESTRA DIOL estradiol 179.0 pg/mL This assay was perfo rmed using [employer] ratio n reage nts and test kits. Value s obtai tiff with other assay metho ds or kits canno t be used inter [facility] . Femal e Estra diol Range s: Folli cular phasE 12.4- 233 pg/mL Ovula tion phasE 41.0- 398 pg/mL Lutea l phasE 22.3- 341 pg/mL Postm enopa usal <5-13 8 pg/mL Healt hy Pregn ant Women 1st Trime ster 154-3 243 pg/mL 2nd Trime ster 1561- 98744 pg/mL 3rd Trime ster 8525- >3000 0 pg/mL Not Available [facility] (Lab) [address] [place], [address], 03/30/2024 16:01:09 03/18/20 24 03/18/2024 FSH, LH, ESTRA DIOL FSH 3.9 mIU/m L This assay was perfo rmed using [employer] ratio n reage nts and test kits. Value s obtai tiff with other assay metho ds or kits canno t be used inter [facility] . Femal es Folli cular : 3.5-1 2.5 mIU/m L Ovula tion: 4.7-2 1.5 mIU/m L Lutea l: 1.7-7 .7 mIU/m L Postm enopa use: 25.8- 134.8 mIU/m L Not Available [facility] (Lab) [address] [place], [address], 03/30/2024 16:01:09 03/18/20 24 03/18/2024 FSH, LH, ESTRA DIOL LH 21.1 mIU/m L This assay was perfo rmed using [employer] ratio n reage nts and test kits. Value s obtai tiff with other assay metho ds or kits canno t be used inter spain eably . Femal es Mid-F ollic ular: 2.4-1 2.6 mIU/m L Mid-C ycle: 14.0- 95.6 mIU/m L Mid-L uteal : 1.0-1 1.4 mIU/m L Postm enopa use: 7.7-5 8.5 mIU/m L Not Available [facility] (Lab) [address] [place], [address], 03/30/2024 16:01:09 03/18/20 24 03/18/2024 HUMAN SEX HORMO NE LITA NG GLOBU AMY sex hormone binding globulin 136.7 nmole s/L 18.2-1 35.5 high Not Available [facility] (Lab) [address] [place], [address], 03/30/2024 16:01:09 03/18/20 24 03/18/2024 TSH, REFLE X FREE T4 TSH 1.47 uIU/m L 0.30-5 .33 Not Available [facility] (Lab) [address] [place], [address], 03/30/2024 16:01:10 03/18/20 24 03/18/2024 TESTO STERO NE, TOTAL AND FREE, SERUM (LC-M S/MS) testosterone free 0.80 NG/dL <0.13- 1.00 ----- ----- ----- ----A DDITI ONAL JAMIAR STELLA N---- ----- ----- ----- This test was devel oped and its perfo rmanc e carlie cteri stics deter [facility] sand[facility] consi stent with CLIA requi remen ts. This test has not been clear ed or appro anaya by the U.S. Food and Drug Admin istra tion. Not Available [facility] (Lab) [address] [facility], [place], [address], 03/30/2024 16:01:10 03/18/20 24 03/18/2024 TESTO STERO NE, TOTAL AND FREE, SERUM (LC-M S/MS) testosterone , total, S 86 NG/dL 8-60 high ----- ----- ----- ----A DDITI ONAL INFOR MATIO N---- ----- ----- ----- Testi ng perfo rmed by Liqui valerio Chrom atogr aphy- Tande m Mass Spect romet ry (LC-M S/MS) . This test was devel oped and its perfo rmanc e carlie cteri stics deter mined by [facility] in a sandi r consi stent with CLIA requi remmarlys ts. This test has not been clear ed or appro anaya by the U.S. Food and Drug Admin istra tion. Test Perfo rmed by: [facility] - [place] [address], [place] [address] Lab Direc tor: Justyn Stokes nn Ph.D. ; CLIA# [id number] Not Available [facility] (Lab) [address] [facility], [place], [address], 03/30/2024 16:01:10 04/01/20 24 04/01/2024 US, ezequiel s No observ ation [facility] [address], [place], [address], 04/01/2024 13:32:56 04/01/20 24 04/01/2024 US, trans vagin al No observ ation record ed. hiram [place] [address], [place], [address], 04/01/2024 13:33:10 04/01/20 24 04/01/2024 US, pelvi s No observ ation record ed. [email or web address] [address], [place], [address], 04/02/2024 22:58:06 Result Notes None recorded. Problems Name Problem SNOMED Code Status Onset Date Resolution Date Notes Provider Name and Address Organization Details Recorded Time Laparoscopic sleeve gastrectomy Active 2014 Yoana Davis MD [address], [place], [address], [facility] 14:08:42 Female hirsutism 67281240 Active 2020 Yoana Davis MD [address], [place], [address], [facility] 14:21:23 Tobacco user 749756320 Active 2020 Yoana Davis MD [address], [place], [address], [facility] 14:21:26 Problem Notes None recorded. Procedures Surgical History Date Name Laterality Status Provider Name and Address Organization Details Recorded Time 03/18/20 24 Date of Last Pap Smear completed Jojo Carrasco [facility] 04/22/2024 11:16:59 06/17/20 17 procedure on back completed Krystal Ford [facility] 04/19/2021 14:09:33 08/17/19 15 laparoscopic sleeve gastrectomy completed Krystal Ford [facility] 04/19/2021 14:08:43 08/17/19 15 cholecystectomy completed Krystal Ford [facility] 04/19/2021 14:08:53 Imaging Results Imaging Date Name Status LastModified by Organization Details LastModified Time 04/01/2024 US, pelvis completed [facility] [address], [place], [address], 04/01/2024 13:32:56 04/01/2024 US, transvaginal completed [facility] [address], [place], [address], 04/01/2024 13:33:10 04/01/2024 US, pelvis completed [email or web address], [place], [address], 04/02/2024 22:58:06 Procedure Notes None recorded. Medical Equipment None Reported. Allergies Allergen ID Allergen Name Allergen Category Reaction Reaction Severity Criticality Documentation Date Start Date Code Code System Note Provider Name and Address Organization Details Recorded Time 12908 chlorhexi dine medicatio n Not available Not available Not available 04/19/2021 2358 RxNorm Krystal Hiclari [facility] 13:59:23 76925 tramadol medicatio n Not available Not available Not available 04/19/2021 98753 RxNorm Krystal Ford [facility] 13:59:36 Medications Name Sig Start Date Stop Date Status Note LastModified by Organization Details LastModified Time amoxicillin 500 mg capsule TAKE 1 CAPSULE BY MOUTH EVERY 8 HOURS FOR 10 DAYS active Not Available Not Available No t Available spironolacto ne 100 mg tablet Take 1 tablet every day by oral route. 03/18 completed Not Available Not Available Not Available escitalopram 20 mg tablet TAKE 1 TABLET BY MOUTH ONCE DAILY active Not Available Not Available No t Available aripiprazole 5 mg tablet TAKE 1 TABLET BY MOUTH ONCE DAILY active Not Available Not Available No t Available ferrous sulfate active Not Available Not Available Not Available Multi-Vitami n active Not Available Not Available Not Available Lexapro active Not Available Not Avail able Not Available Vitals Date Recorded Body height Body mass index (BMI) Body weight Systolic blood pressure Diastolic blood pressure Provider Name and Address Organization Details Last Updated DateTime 04/19/2021 160.02 cm 27.3 kg/m2 35358.22 g 120 mm[Hg] 74 mm[Hg] [facility] 1 14:03:51 Date Recorded Body height Body mass index (BMI) Body weight Systolic blood pressure Diastolic blood pressure Provider Name and Address Organization Details Last Updated DateTime 05/10/2021 160.02 cm 28 kg/m2 07804.59 g 115 mm[Hg] 72 mm[Hg] [facility] 1 11:31:53 Date Recorded Body height Body mass index (BMI) Body weight Systolic blood pressure Diastolic blood pressure Provider Name and Address Organization Details Last Updated DateTime 03/18/2024 160.02 cm 28.7 kg/m2 73958.96 g 110 mm[Hg] 69 mm[Hg] [facility] 4 12:10:27 Date Recorded Body height Body mass index (BMI) Body weight Systolic blood pressure Diastolic blood pressure Provider Name and Address Organization Details Last Updated DateTime 04/22/2024 160.02 cm 29.8 kg/m2 23113.52 g 107 mm[Hg] 71 mm[Hg] [facility] 4 11:26:27 Social History Question Answer Notes LastModified by Organizat ion Details LastModified Time Are You Blind Or Do You Have Difficulty Seeing? No [email or web address] Information not available 03/17/2024 In The 14 Days Before Symptom Onset, Have You Had Close Contact With A Laboratory-confirmed COVID-19 While That Case Was Ill? No [email or web address] Information not available 03/17/2024 In The 14 Days Before Symptom Onset, Have You Had Close Contact With A Person Who Is Under Investigation For COVID-19 While That Person Was Ill? No [email or web address] Information not available 03/17/2024 Have You Been To An Area Known To Be High Risk For COVID-19? No [email or web address] Information not available 03/17/2024 Are You Deaf Or Do You Have Serious Difficulty Hearing? No [email or web address] Information not available 03/17/2024 Do You Have Smoke And Carbon Monoxide Detectors In Your Home? Yes [email or web address] Information not available 03/17/2024 Do You Use Sunscreen Routinely? Yes [email or web address] Information not available 03/17/2024 Sex: Unknown Functional Status Question Answer Note LastModified by Organizat ion Details LastModified Time Do you have difficulty walking or climbing stairs? No [email or web address] Information not available 03/17/2024 Are you able to walk? YESWOREST [email or web address] Information not available 03/17/2024 Are you able to care for yourself? Yes [email or web address] Information not available 03/17/2024 Do you have difficulty dressing or bathing? No Information not available 03/17/2024 Mental Status None recorded. Family History Relationship Description Onset Age of this Age Resolved Age Notes LastModified by Organization Details LastModified Time Mother Anemia [email or web address] Not available 14:08:03 Brother Asthma [email or web address] Not available 0 04/19/2021 14:08:08 Maternal Grandfather Diabetes mellitus [email or web address] Not available 2020 14:08:16 Sister Polycystic ovary syndrome [email or web address] Not available 2020 14:08:25 Medical History Condition Response Allergies (Food, seasonal, environmental ) N Other N Breast Cancer N Drug/Latex Allergies/Reactions N Blood Transfusion N Dermatologic Disorders N Lung Disease N Defects or Inherited Disease N Breast Problem N Gestational Diabetes N Hematologic disorders N Anesthesia Complications N History of STI N Deep Vein Thrombosis N Polycystic ovary syndrome N Anxiety Disorder N Autoimmune disease N Arthritis N Infertility N Polyps N Acid Reflux (GERD) N History of abnormal pap N Cancer N Stroke N Varicosities N Neurologic/Epilepsy N Endometriosis N High Cholesterol N Headaches N Fibromyalgia N Kidney Disease N Heart Problems N Kidney or Bladder Problems N Thyroid Problems N GI Problems N Eating Disorder N Anemia Y Art (IVF or FET) N Psychiatric Illness N Ovarian Cancer N Diabetes N Pulmonary (TB, Asthma) N Hepatitis/Liver Disease N No Past Medical History N Eczema N Urinary Tract Infection N Abuse/Domestic Violence N Asthma N Trauma/Violence N Depression/ depression Y Heart Disease N Pre-Eclampsia N Hypertension N Osteoporosis N Thrombophilias N Gynecological History Statement/Question Response Abnormal Pap N Flow Heavy Date of LMP 03/31/2024 STIs/STDs N HPV Vaccine N Duration of Flow (days) 5 10 Current Control Method Partner Vas ectomy Frequency of Cycle (Q days) 28 Menses Monthly Y Date of Last Pap Smear 03/18/2024 Sexual Problems? N LMP Approximate Obstetrics History GPAL:G 2 P 2 0 0 2 Type Value Full Term 2 Living 2 Total 2 Past Encounters Encounter ID Performer Location Encounter Start Date Encounter Closed Date Diagnosis/Indication Diagnosis SNOMED-CT Code Diagnosis ICD10 Code Diagnosis Note [id number] Yoana Davis MD [facility] [address],[place] [address] 04/19/2021 13:49:54 04/19/2021 15:18:11 Gynecologic examination 04213572 Z01.419 Female hirsutism [id number] L68.0 Tobacco user [id number] Z 72.0 [id number] Yoana Davis MD [facility] [address],[place] [address] 05/10/2021 11:27:32 05/10/2021 13:13:49 Polycystic ovary syndrome [id number] E28.2 Gastroesop hageal reflux disease [id number] K21.9 Medication monitoring 39 [id number] Z51.81 [id number] ABBY Ramirez [facility] [address],[place] [address] 03/18/2024 12:01:46 03/18/2024 13:56:58 Gynecologic examination [id number] Z01.419 WWEpap updatedde lined STI screenmamm ogram order given - [facility] UTD[facility]PCP It is strongly advised to have an annual flu shot and up can obtain at most pharmacies . If you have not had a TDap shot in the last 10 years you should obtain one as well. Discussed with patient & provided with informatio n regarding the HPV vaccine if applicable . Encourage safe sexual practices, to use condoms and limit partners if not already in a monogamous relationsh ip. Do monthly self breast exams. BRCA testing is now available for patients with strong genetic history of female cancer. If interested contact the office. Engage in regular exercise. Avoid tobacco and illicit drugs. . This lifestyle behavior pattern will lead to less health conditions and longer life span. If BMI greater than 25 dietary consult advised. Patient received above instructio ns, and questions have been answered. Abnormal u terine bleeding [id number] 9100 N93.9 The patient and I discussed the various causes of abnormal uterine bleeding, including polyps, fibroids, hyperplasi a, atypia, anovulatio n, etc. We reviewed the typical evaluation with labs, pelvic US and possible endometria l biopsy. Briefly discussed the options available for treatment (depending on the results of evaluation ). labs orderedpel neeraj u/s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
--- OUTSIDE RECORDS SUMMARY | 2024-10-21 09:08 | XMS_ITS | Referral Summary ---
Author Organization [facility] Address [address] [address] Care Team Providers Care Vault Clerk Name Role Phone Sotero Krause MD Primary Care Provider [phone] Source Comments [facility],non-owned Affiliates and Associated Physician Practices is amultiple site organization consisting of ambulatory clinics and hospital sitesin [place], [place], [place] and [place]. This disclosure is being madepursuant to the Care Everywhere program and may not contain all information available regarding this patient. Last updated 18.[facility] Allergies Active Allergy Reactions Criticality Noted Date Comments Chlorhexidine Rash Medium 06/29/2024 Tramadol Nausea and/or Vomiting 06/29/2024 vicryl sutures [Other] Other Unable to dissolve and causes abscess Medications * Be aware that medications may not be up to date on this document. Alwaysverify current medications with the patient. Medication Sig Dispensed Refills Start Date End Date Status escitalopram (Lexapro) 20 MG tabletIndications:Iron deficiency anemia due to chronic blood loss Take 1 (one) tablet by mouth at bedtime Active ARIPiprazole (Abilify) 5 MG tabletIndications:Iron deficiency anemia due to chronic blood loss Take 1 (one) tablet by mouth once daily 06/25/2024 Active multivitamin daily tabletIndications:Iron deficiency anemia due to chronic blood loss Take 1 (one) tablet by mouth daily with food Active Active Problems No known active problems Social [...] Comments Blood Pressure 111/57 06/29/2024 3:06 PM EDITOR MANAGING NEWSPAPER Pulse 74 06/29/2024 3:06 PM EDITOR MANAGING NEWSPAPER Temperature 36.9 C (98.4 F) 06/29/2024 3:06 PM EDITOR MANAGING NEWSPAPER Respiratory Rate - - Oxygen Saturation 99% 06/29/2024 3:06 PM EDITOR MANAGING NEWSPAPER Inhaled Oxygen Concentration - - Weight 77.5 kg (170 lb 12.8 oz) 06/29/2024 3:06 PM EDITOR MANAGING NEWSPAPER Height 160 cm (5' 3 ) 06/29/2024 3:06 PM EDITOR MANAGING NEWSPAPER Body Mass Index 30.26 06/29/2024 3:06 PM EDITOR MANAGING NEWSPAPER Plan of Treatment Not on file Procedures Procedure Name Priority Date/Time Associated Diagnosis Comments COMPREHENSIVE METABOLIC PANEL Routine 06/29/2024 4:27 PM EDITOR MANAGING NEWSPAPER Iron deficiency anemia due to chronic blood loss from Last 3 Months or Most Recently Relevant to Health Maintenance Results * (ABNORMAL) COMPREHENSIVE METABOLIC PANEL (06/29/2024 4:27 PM EDITOR MANAGING NEWSPAPER) Glucose 104(H) 70 - 99 mg/dL [facility] [...] BLOOD SPECIMEN / Unknown 06/29/2024 4:27 PM EDITOR MANAGING NEWSPAPER 06/29/2024 Comment:Blood Release to pat i Narrative [facility] ACCOUNT BILL - 06/29/2024 9:07 PM EDITOR MANAGING NEWSPAPER Performed at: [address] [place] [id number] Meat Lugger: Jairon Soto MD, Phone: [phone] Marc Griffin MD LAB - CHEMISTRY MARYANN BARTLETT [facility] ACCOUNT BILL [address] [place] [address] from Last 3 Months or Most Recently Relevant to Health Maintenance Care Teams Vault Clerk Relationship Specialty Start Date End Date Sotero Krause MD [address] [place] [id number] PCP - General Family Medicine 06/20/24
--- OUTSIDE RECORDS SUMMARY | 2024-10-21 09:08 | XMS_ITS | Encounter Summary ---
Author Organization [facility] Address [address] [place] [address] Care Team Providers Care Demurrage Clerk Name Role Phone Sotero Krause MD Primary Care Provider [phone] Encounter Details Date Type Department Care Team (Late st Contact Info) Description 12/12/2021 Hospital Orders Only [facility] [address] [place] [address] Sotero Krause MD [address] [place] [address] Social History Tobacco Use Types Packs/Day Years Used Date Smoking Tobacco: Never Assessed Comments Unknown Sex and Gender Information Value Date Recorded Sex Assigned at Not on file Legal Sex Female 11:27 PM DIRECTOR CUSTOMER Gender Identity Not on file Sexual Orientation Not on file documented as of this encounter Plan of Treatment Not on file documented as of this encounter Visit Diagnoses Not on filedocumented in this encounter Care Teams Demurrage Clerk Relationship Specialty Start Date End Date Sotero Krause MD [address] [place] [address] PCP - General FAMILY PRACTICE 05/20/21 documented as of this encounter
--- OUTSIDE RECORDS SUMMARY | 2024-10-21 09:08 | XMS_ITS | Clinical Summary ---
Author Organization [facility] [employer] Address [address] [place] [address] Care Team Providers Care Passenger Car Conductor Name Role Phone Sotero Krause MD Primary Care Provider Source Comments [facility] [employer],non-owned Affiliates and Associated Physician Practices is amultiple site organization consisting of ambulatory clinics and hospital sitesin [place], [place], [place] and [place]. This disclosure is being madepursuant to the Care Everywhere program and may not contain all information available regarding this patient. Last updated 18.[facility] [employer] Allergies Active Allergy Reactions Criticality Noted Date [...] Comments Blood Pressure 111/57 06/29/2024 3:06 PM FINANCIAL CONTROLLER Pulse 74 06/29/2024 3:06 PM FINANCIAL CONTROLLER Temperature 36.9 C (98.4 F) 06/29/2024 3:06 PM FINANCIAL CONTROLLER Respiratory Rate - - Oxygen Saturation 99% 06/29/2024 3:06 PM FINANCIAL CONTROLLER Inhaled Oxygen Concentration - - Weight 77.5 kg (170 lb 12.8 oz) 06/29/2024 3:06 PM FINANCIAL CONTROLLER Height 160 cm (5' 3 ) 06/29/2024 3:06 PM FINANCIAL CONTROLLER Body Mass Index 30.26 06/29/2024 3:06 PM FINANCIAL CONTROLLER Plan of Treatment Health Maintenance Due Date Last Done Comments LIPID TESTING 1984 MAMMOGRAM 1984 HIV SCREENING 1999 HEPATITIS C SCREENING 06/06/2002 DTAP/TDAP/TD VACCINES (1 - Tdap) 2003 HEPATITIS B VACCINE (1 of 3 - 19+ 3-dose series) 2003 COVID-19 VACCINE ( season) 2024 07/17/2023, 06/27/2021, 09/15/2020, Additional history exists DEPRESSION SCREENING 08/17/2024 PAP SMEAR 03/18/2027 03/18/2024 SCREENING FOR DIABETES 06/29/2027 06/29/2024 ZOSTER VACCINE (1 of 2) 2034 INFLUENZA VACCINE Completed 05/13/2024, , 06/09/2022, Additional history exists HIB VACCINE Aged Out No longer eligi ble based on patient's age to complete this topic HPV VACCINE Aged Out No longer eligi ble based on patient's age to complete this topic MENINGOCOCCAL (Group B) VACCINE Aged Out No longer eligible based on patient's age to complete this topic MENINGOCOCCAL VACCINE Aged Out No pablo tyron eligible based on patient's age to complete this topic PNEUMOCOCCAL VACCINE Aged Out No long er eligible based on patient's age to complete this topic Procedures Procedure Name Priority Date/Time Associated Diagnosis Comments COMPREHENSIVE METABOLIC PANEL Routine 06/29/2024 4:27 PM FINANCIAL CONTROLLER Iron deficiency anemia due to chronic blood loss from Last 3 Months or Most Recently Relevant to Health Maintenance Results * (ABNORMAL) COMPREHENSIVE METABOLIC PANEL (06/29/2024 4:27 PM FINANCIAL CONTROLLER) Glucose 104(H) 70 - 99 mg/dL [facility] [...] BLOOD SPECIMEN / Unknown 06/29/2024 4:27 PM FINANCIAL CONTROLLER 06/29/2024 Comment:Blood Release to pat i Narrative [facility] ACCOUNT BILL - 06/29/2024 9:07 PM FINANCIAL CONTROLLER Performed at: [address] [place] [id number] Hatch Supervisor: Jairon Soto MD, Phone: [phone] Marc Griffin MD LAB - NATALI BARTLETT [facility] ACCOUNT BILL [address] [place] [address] from Last 3 Months or Most Recently Relevant to Health Maintenance Care Teams Passenger Car Conductor Relationship Specialty Start Date End Date Sotero Krause MD [address] [address] PCP - General Family Medicine 06/20/24
--- OUTSIDE RECORDS SUMMARY | 2024-10-21 09:08 | XMS_ITS | Clinical Summary ---
Author Organization [facility] Address [address] [address] Phone Care Team Providers Care Program Evaluation Consultant Name Role Phone Sotero Krause MD Primary Care Provider [phone] Allergies No known active allergies Medications escitalopram oxalate (LEXAPRO) 20 mg tablet Take 20 mg by mouth daily at bedtime. Active ranitidine (ZANTAC) 150 mg tablet Take 150 mg by mouth daily. Active metoclopramide HCl (REGLAN) 10 mg tablet Take 1 Tablet (10 mg) by mouth every 6 hours as needed for Nausea/Emes is. 20 Tablet 0 05/17/2015 Active Active Problems Problem Noted Date Diagnosed Date Morbid obesity 05/16/2015 GERD (gastroesophageal reflux disease) 5 IBS (irritable bowel syndrome) 05/16/2015 Depression 05/16/2015 Gastroesophageal reflux disease without esophagi tis Irritable bowel syndrome without diarrhea Immunizations Immunization Administration Dates Next Due Influenza Seasonal Unspecified Formulation IM Family History Medical History Relation Name Comments Arthritis-rheumatoid Father Heart Disease Father Hypertension Father Hypertension Mother Relation Name Status Comments Brother Alive Father Alive Mother Alive Sister 1 Alive Sister 2 Alive Social History Tobacco Use Types Packs/Day Years Used Date Smoking Tobacco: Former Cigarettes Q uit: 10/20/2014 Alcohol Use Standard Drinks/Week Comments Yes 0 (1 standard drink = 0.6 oz pur e alcohol) 1-2/month Comments No Sex and Gender Information Value Date Recorded Sex Assigned at Not on file Legal Sex Female 8:03 AM CDT Gender Identity Not on file Sexual Orientation Not on file Last Filed Vital Signs Vital Sign Reading Time Taken Comments Blood Pressure 107/68 05/17/2015 7:00 AM CDT Pulse 79 05/17/2015 7:00 AM CDT Temperature 36.6 C (97.8 F) 05/17/2015 7:00 AM CDT Respiratory Rate 18 05/17/2015 7:00 AM CDT Oxygen Saturation 100% 05/17/2015 7:0 0 AM CDT Inhaled Oxygen Concentration - - Weight 104.8 kg (231 lb) 05/17/2015 6:0 0 AM CDT pt states that admit weight was 227 lb Height 160 cm (5' 3 ) 05/16/2015 10:30 AM CDT Body Mass Index 40.92 05/16/2015 10:30 AM CDT Plan of Treatment Health Maintenance Due Date Last Done Comments Pre-Diabetes and Diabetes Screening 1984 DTAP/TDAP/TD VACCINES (1 - Tdap) 2003 HEPATITIS B VACCINES (1 of 3 - 19+ 3-dose series) 2003 CERVICAL CANCER SCREENING 2014 INFLUENZA VACCINE (#1) 2024 05/22/2014 BREAST CANCER SCREENING 2024 HPV VACCINES Aged Out No longer eligi ble based on patient's age to complete this topic PNEUMOCOCCAL VACCINE 0-49 YEARS Aged Out No longer eligible based on patient's age to complete this topic Medical Devices Implanted Type Area Cage Cashier Device Identifier Shelf Expiration Date Model / Serial / Lot Seamguard Bio 60 [id number] - [id number] Implanted:Qty: 4 on 05/16/2015 by Renaldo Alejandra MD at [facility] N/A: Stomach [employer] 01/14/2018 [id number] / / [id number] Insurance [facility] [employer]AL Advance Directives For more information, please contact: [phone] * Full Code (Latest Code Status on File) Date Activated Date Inactivated Comments 05/16/2015 5:37 AM 05/17/2015 2:46 PM * Full Code Date Activated Date Inactivated Comments 03/30/2015 9:06 AM 03/30/2015 2:53 PM * Full Code Date Activated Date Inactivated Comments 12/27/2014 6:33 AM 12/27/2014 4:19 PM Care Teams Program Evaluation Consultant Relationship Specialty Start Date End Date Sotero Krause MD [address] [place] [address] PCP - General Family Practice 12/19/14
== END 2024-10-21 08:45 | disposition home or self-care (01) ==
LOC: ANHSURGERY 08:48
PROVIDERS: Anesthesiology; PCP Family Medicine; Visit Provider Obstetrics & Gynecology
DX: Z01.818 Encounter for other preprocedural examination (principal)
CPT/HCPCS: 36415; 85014; 85018; 86850; 86900; 86901

== ENCOUNTER 2024-10-26 00:40 | Day surgery (SDC) | payer OTHER, SELFPAY ==
--- NOTE | 2024-10-13 13:34 | SUR.PREOP ---
Report to the Outpatient Waiting Room, entrance under the green pavilion located off [facility], at time ____599___ on date ____10/26/24___. Planned Procedure Time: ____729____.? Time changes happen often and if your time is changed the preop area will call you the afternoon before. - You and your visitor will be asked to self-screen and do not enter if you have any COVID symptoms. Please call surgeon if you need to reschedule. - A mask is optional within the hospital at this time. Patients may have clear liquids (water, carbonated beverages, clear teas, apple juice) until 3 hours prior to surgery with a maximum of 20 ounces. - NO CLEAR LIQUIDS AFTER 0430 - No food from midnight until time of surgery and no smoking, or chewing tobacco (or any form of nicotine). No chewing gum, candy or mints. - Infants may have breast milk until 4 hours before surgery, infant formula 6 hours prior to surgery. - Children will be allowed to drink immediately following surgery.? If applicable, please bring a bottle or sippy cup to assist with drinking. Juice, water, soda, and popsicles are readily available.? For infants on formula, please bring formula the day of surgery.? Pacifiers are allowed. Take only the following medications with a SIP of water on the morning of surgery: N/A DO NOT STOP ANY OF YOUR OTHER PRESCRIPTION MEDICATIONS PRIOR TO SURGERY EXCEPT THE FOLLOWING Hold all vitamins and supplements for 3 days per anesthesiologist. Medications to discontinue per physician N/A Date to take last dose Please no make-up, nail nigerian, hairspray, perfume, deodorant, or body powder the day of surgery.? No jewelry (including any body piercings) or valuables the day of surgery, leave them at home.? Please take a shower or bath the night before, or the morning of, surgery with an antibacterial soap.? Wear comfortable, loose fitting clothing.? Children are encouraged to wear pajamas. - Jewelry must be removed prior to entering the operating room.? Rings and piercings that are not removed may be cut off. - The hospital will not accept responsibility for valuables.? - Please leave all valuables, including medications, at home the day of surgery. If you are going home after surgery, a licensed truck driver must drive you home.? - NO public transportation without another adult if you receive anesthesia. - We recommend that an adult stay with you for 24 hours following discharge. - We also recommend that you do not drive, make important decision, drink alcoholic beverages, or take any drugs that were not prescribed by your health care provider for at least 24 hours after your discharge time. For Pediatric surgeries, we recommend two adults accompany the child home. Follow any additional instructions given to you from your surgeon. Telephone instructions given to ANA GAMBINO and asked if any additional questions and then verbalized understanding. Patient advised to call surgeon office or pre surgery nurse liaison [phone] if any additional questions.
[2024-10-13 13:50] VITALS: BMI 31.5
[2024-10-26] VITALS (11 sets, daily range): BP systolic 94–121; BP diastolic 48–75; PULSE 69–83; RESP 12–18; TEMP 36.3–37.1; O2SAT 96–100
--- OUTSIDE RECORDS SUMMARY | 2024-10-26 00:43 | XMS_ITS | Encounter Summary ---
Author Organization [facility] Address [address] [place] [address] Care Team Providers Care Assistant Corporate Controller Name Role Phone Sotero Krause MD Primary Care Provider [phone] Encounter Details Date Type Department Care Team (Late st Contact Info) Description 01/22/2019 Abstract [facility]FL CONVERSION [address] [place] [address] , Generic Conversion, Social History Tobacco Use Types Packs/Day Years Used Date Smoking Tobacco: Never Assessed Comments Unknown Sex and Gender Information Value Date Recorded Sex Assigned at Not on file Legal Sex Female 11:27 PM EVALUATION MANAGER Gender Identity Not on file Sexual Orientation [...] documented as of this encounter Care Teams Assistant Corporate Controller Relationship Specialty Start Date End Date Sotero Krause MD [address] [place] [address] PCP - General FAMILY PRACTICE 05/20/21 documented as of this encounter
--- OUTSIDE RECORDS SUMMARY | 2024-10-26 00:43 | XMS_ITS | Encounter Summary ---
Author Organization [facility] Address [address] [place] [id number] Care Team Providers Care Yard Laborer Name Role Phone Sotero Krause MD Primary Care Provider [phone] Encounter Details Date Type Department Care Team (Late st Contact Info) Description 10/31/2017 Abstract [facility] CONVERSION [address] [place] [address] , Generic Conversion, Social History Tobacco Use Types Packs/Day Years Used Date Smoking Tobacco: Never Assessed Comments Unknown Sex and Gender Information Value Date Recorded Sex Assigned at Not on file Legal Sex Female 11:27 PM [employer]ATING TANK OPERATOR APPRENTICE Gender Identity Not on file Sexual Orientation [...] documented as of this encounter Care Teams Yard Laborer Relationship Specialty Start Date End Date Sotero Krause MD [address] [place] [id number] PCP - General FAMILY PRACTICE 05/20/21 documented as of this encounter
--- OUTSIDE RECORDS SUMMARY | 2024-10-26 00:43 | XMS_ITS | Data Portability ---
Author Organization [facility] [place] Address [address] [place] [address] Care Team Providers Care Pharmacy General Manager Name Role Phone KIERRAPAULETTE ANIYAH Primary Care Provider [phone] Assessment Encounter Date Assessment Date Assessment LastModified by Organization Details LastModified Time 05/10/2021 05/10/2021 DIscussed PCOS in depth, including diagnosis, hallmarks, medical and fertility implications, risk of endometrial hyperplasia or malignancy with oligomenorrhea, treatments. For now, doesn't require treatment as periods relatively regular and no further pregnancies planned If starts spironolactone, BMP couple weeks after restart OTC GERD medication WWE due 04/2022 [email or web address] Not available 05/10/2021 13:02:04 03/18/2024 03/18/2024 Annual gynecological exam performed. Patient will come back in a year unless there are new symptoms. [email or web address] Not available 03/17/2024 12:31:40 Plan of Treatment Reminders Order Date Submit Date Provider Last Modified By Organization Details Last Modified Time Details Appointments Robotic [facility] 2024 07:30A Irene YUEN MD Not available Not available Not available SURG POST OP 2024 01:00P Irene YUEN MD Not available Not available Not available Lab dhea-sulf ate, serum 2023 024 [facility] (Lab), [address], [place], [address], 03/30/2024 16:01:07 hormone panel, serum or plasma 2023 024 [facility] (Lab), [address] [place], [address], 03/30/2024 16:01:09 progester one, serum 2023 024 [facility] (Lab), [address] [facility], [place], [address], 03/30/2024 16:01:08 prolactin , serum 2023 024 [facility] (Lab), [address] [facility], [place], [address], 03/30/2024 16:01:08 shbg (sex hormone-b inding globulin) , serum 2023 024 [facility] (Lab), [address] [facility], [place], [address], 03/30/2024 16:01:09 TSH, serum or plasma 2023 024 [facility] (Lab), [address] [facility], [place], [address], 03/30/2024 16:01:10 testoster one free/test osterone total, ratio, serum 2023 024 [facility] (Lab), [address] [place], [address], 03/30/2024 16:01:10 BMP, blood 2020 021 [facility] (Lab), [address] [facility], [place], [address], 05/28/2021 02:20:44 Referral None recorded. Procedures None recorded. Surgeries None recorded. Imaging US, pelvis 2023 024 [email or web address] , [address], [address], [place], [address], 04/02/2024 22:08:36 US, transvagi nal 2023 024 [email or web address], [address], [place], [address], 04/02/2024 22:08:36 MAMMO, screening , digital, bilateral 2023 024 [facility], [address], [place], [address], 10/02/2024 05:01:19 US, pelvis, complete 2023 024 [facility], [address], [place], [address], 09/25/2024 05:01:13 Medication Orders None recorded. Patient TargetsNo targets recorded. Patient InstructionsNo instructions recorded. Reason for Referral None Reported. Results Created Date Observation Date Name Description Value Unit Range Abnormal Flag Note LastModifiedBy Organization Detail LastModifiedTime 04/19/2004/19/2021 DHEA SULFA TE DHEA-sulfate 258 ug/dL Femal e Range s Age(y ) Range (ug/d L) 10-15 34-28 0 15-20 65-36 8 20-25 148-4 07 25-35 99-34 0 35-45 61-33 7 45-55 35-25 6 55-65 19-20 5 65-75 9-246 > 75 12-15 4 Not Available [facility] (Lab) [address], [place], [address], 04/24/2021 00:04:41 04/19/2004/19/2021 HEMOG LOBIN A1C hemoglobin A1C 5.4 % 0-5.6 The Ameri can Diabe melissa Assoc iatio n recom mends that a prima ry goal of thera py gia d be a HBA1C of < 7% and that physi cians kathrineul d reeva luate the treat ment regim en in patie nts with HBA1C value s consi stent ly > 8%. <5.7% Jesica l 5.7 - 6.4% Incre ased risk for diabe melissa >=6.5 % Diagn ostic of diabe melissa <7.0% Goal of thera py >8.0% Actio n lionel stevalerio Not Available [facility] (Lab) [address] [facility], [place], [address], 04/24/2021 00:04:41 04/19/20 21 04/19/2021 TESTO STERO NE, FREE( DIALY SIS) AND TOTAL (LC/M S/MS) testosterone , total 82 NG/dL 2-45 high For addit ional infor stella archer, dennis e refer to http: //[facility] [place] acrher.que stdia gnost ics.c om/fa q/Tot al Testo stero neLCM SMS (This link is being provi ded for infor matjf nal/e ducat ional purpo ses only. ) This test was devel oped and its miriam tical perfo rmanc e carlie cteri stics have been deter mined by [facility]. It has not been clear ed or appro anaya by the FDA. This assay has been valid ated pursu ant to the CLIA regul ation s and is used for clini marlene purpo ses. Not Available [facility] (Lab) [address] [facility], [place], [address], 04/24/2021 00:04:42 04/19/2004/19/2021 TESTO STERO NE, FREE( DIALY SIS) AND TOTAL (LC/M S/MS) testosterone , free 3.6 pg/mL 0.1-6. 4 This test was devel oped and its miriam tical perfo rmanc e carlie cteri stics have been deter mined by [facility]. It has not been clear ed or appro anaya by the FDA. This assay has been valid ated pursu ant to the CLIA regul ation s and is used for clini marlene purpo ses. Perfo rming Organ izati on Infor matio n: Site ID: [id number] Name: [facility] Jessica jean Addre ss: [id number] [place] [address] Direc tor: Jyoti howell M.D. Not Available [facility] (Lab) [address] [facility], [place], [address], 04/24/2021 00:04:42 05/27/20 21 05/27/2021 BASIC METAB OLIC PANEL sodium 135 mmol/ L 133-14 6 Not Available [facility] (Lab) [address] [facility], [place], [address], 05/28/2021 02:20:44 05/27/20 21 05/27/2021 BASIC METAB OLIC PANEL potassium 4.4 mmol/ L 3.5-5. 1 Not Available [facility] (Lab) [address] [facility], [place], [address], 05/28/2021 02:20:44 05/27/20 21 05/27/2021 BASIC METAB OLIC PANEL chloride 102 mmol/ L 98-107 Not Available [facility] (Lab) [address] [facility], [place], [address], 05/28/2021 02:20:44 05/27/20 21 05/27/2021 BASIC METAB OLIC PANEL carbon dioxide 26 mmol/ L 21-31 Not Available [facility] (Lab) [address] [facility], [place], [address], 05/28/2021 02:20:44 05/27/20 21 05/27/2021 BASIC METAB OLIC PANEL anion gap 7 mmol/ L 4-13 Not Available [facility] (Lab) [address] [facility], [place], [address], 05/28/2021 02:20:44 05/27/20 21 05/27/2021 BASIC METAB OLIC PANEL blood urea nitrogen 10 mg/dL 7-[address] [facility] (Lab) [address] [facility], [place], [address], 05/28/2021 02:20:44 05/27/20 21 05/27/2021 BASIC METAB OLIC PANEL creatinine 0.72 mg/dL 0.60-1 .30 Not Available [facility] (Lab) [address] [facility], [place], [address], 05/28/2021 02:20:44 05/27/20 21 05/27/2021 BASIC METAB OLIC PANEL GFR () 111 mL/mi n/1.7 3_m2 60-300 Not Available [facility] (Lab) [address] [facility], [place], [address], 05/28/2021 02:20:44 05/27/20 21 05/27/2021 BASIC METAB OLIC PANEL GFR (others) 92 mL/mi n/1.7 3_m2 60-300 Not Available [facility] (Lab) [address] [facility], [place], [address], 05/28/2021 02:20:44 05/27/20 21 05/27/2021 BASIC METAB OLIC PANEL calcium 9.3 mg/dL 8.3-10 .5 Not Available [facility] (Lab) [address] [facility], [place], [address], 05/28/2021 02:20:44 05/27/20 21 05/27/2021 BASIC METAB [...] will be imple mente d. Not Available [facility] (Lab) [address] [facility], [place], [address], 05/28/2021 02:20:44 03/18/20 24 03/18/2024 IMAGE GUIDE D PAP AND HPV REGAR DLESS image guided Pap, HPV regardless of Pap result SEE RESULT S BELOW CASE REPOR T: Cytol ogy Gynec ologi marlene Repor t Case: [id number] Autho jaclyn g Provi jackson: Urvashi Martinez, DIRECTOR OF BUSINESS CONTINUITY Colle cted: 03/18 1352 Order ing Locat ion: [place] Patho logcindy Recei anaya: 03/19 0317 First Olegarioelio n: Marifer Oneill Speci men: Whitley cespedes Pap - Image d, Cervi x STATE MENT OF ADEQU ACY: Satis facto ry for evalu ation Trans forma tion zone compo nent prese nt ----- ----- ----- ----- ----- ----- ----- ----- ----- ----- ----- ----- ----- ----- ----- ----- ----- ---- FINAL DIAGN OSIS: Negat bryson for Intra epith elial Lesio gianni or Venkatesh reeder ([facility]) . Elect jacqui luo by Marifer Oneill [...] Thinp rep Imagi ng Syste m. CLINI MARLENE INFOR MATIO N: Menst rual Statu s: LMP (if appli cable ): 2023 Clini marlene Histo ry/Pr eviou s Pap: Type of Neopl fer (if appli cable ): Signi fican t Clini marlene Findi ngs: Other Histo ry: Hormo theresa [...] ds on the locat ion of the lesio n and sampl ing techn ique. Christian nued regul ar scree rubina is the best metho d of cance r preve ntion . If repor alisson cytol ogic findi ng do not corre late with physi marlene and/o r histo rical findi ngs, furth er inves tigat ion is recom nivia d, as clini reyna hernadez nted. Not Available [facility] (Lab) [address] [facility], [place], [address], 03/24/2024 20:31:47 03/18/2003/18/2024 DHEA SULFA TE DHEA-sulfate 227 ug/dL Femal e Range s Age(y ) Range (ug/d L) 10-15 34-28 0 15-20 65-36 8 20-25 148-4 07 25-35 99-34 0 35-45 61-33 7 45-55 35-25 6 55-65 19-20 5 65-75 9-246 > 75 12-15 4 Not Available [facility] (Lab) [address] [facility], [place], [address], 03/30/2024 16:01:07 03/18/20 24 03/18/2024 PROGE STERO [...] Trime ster 58.70 -214. 00 Not Available [facility] (Lab) [address] [place], [address], 03/30/2024 16:01:08 03/18/20 24 03/18/2024 PROLA CTIN prolactin, total 8.24 NG/mL 4.79-2 3.30 This assay was perfo rmed using [facility] [employer]po ratio n reage nts and test kits. Value s obtai tiff with other assay metho ds or kits canno t be used [facility] . Not Available [facility] (Lab) [address] [place], [address], 03/30/2024 16:01:08 03/18/20 24 03/18/2024 FSH, LH, ESTRA DIOL estradiol 179.0 pg/mL This assay was perfo rmed using [facility] [employer] ratio n reage nts and test kits. Value s obtai tiff with other assay metho ds or kits canno t be used [facility] . Femal e Estra diol Range s: Folli cular phasE 12.4- 233 pg/mL Ovula tion phasE 41.0- 398 pg/mL Lutea l phasE 22.3- 341 pg/mL Postm enopa usal <5-13 8 pg/mL Healt hy Pregn ant Women 1st [place] 154-3 243 pg/mL 2nd [place] 1561- 95087 pg/mL 3rd [place] 8525- >3000 0 pg/mL Not Available [facility] (Lab) [address] [place], [address], 03/30/2024 16:01:03/18/20 24 03/18/2024 FSH, LH, ESTRA DIOL FSH 3.9 mIU/m L This assay was perfo rmed using [facility] [employer] ratio n reage nts and test kits. Value s obtai tiff with other assay metho ds or kits canno t be used [facility] . Femal es Folli cular : 3.5-1 2.5 mIU/m L Ovula tion: 4.7-2 1.5 mIU/m L Lutea l: 1.7-7 .7 mIU/m L Postm enopa use: 25.8- 134.8 mIU/m L Not Available [facility] (Lab) [address] [facility], [place], [address], 03/30/2024 16:01:03/18/20 24 03/18/2024 FSH, LH, ESTRA DIOL LH 21.1 mIU/m L This assay was perfo rmed using [facility] [employer] ratio n reage nts and test kits. Value s obtai tiff with other assay metho ds or kits canno t be used [facility] . Femal es Mid-F ollic ular: 2.4-1 2.6 mIU/m L Mid-C ycle: 14.0- 95.6 mIU/m L Mid-L uteal : 1.0-1 1.4 mIU/m L Postm enopa use: 7.7-5 8.5 mIU/m L Not Available [facility] (Lab) [address] [facility], [place], [address], 03/30/2024 16:01:09 03/18/20 24 03/18/2024 HUMAN SEX HORMO NE LITA NG GLOBU AMY sex hormone binding globulin 136.7 nmole s/L 18.2-1 35.5 high Not Available [facility] (Lab) [address] [place], [address], 03/30/2024 16:01:09 03/18/20 24 03/18/2024 TSH, REFLE X FREE T4 TSH 1.47 uIU/m L 0.30-5 .33 Not Available [facility] (Lab) [address] [place], [address], 03/30/2024 16:01:10 03/18/20 24 03/18/2024 TESTO STERO NE, TOTAL AND FREE, SERUM (LC-M S/MS) testosterone free 0.80 NG/dL <0.13- 1.00 ----- ----- ----- ----A DDITI ONAL INFOR MATIO N---- ----- ----- ----- This test was devel oped and its perfo rmanc e carlie cteri stics deter mined by [facility] in a sandi r consi stent with CLIA requi remen ts. This test has not been clear ed or appro anaya by the U.S. Food and Drug Admin istra tion. Not Available [facility] (Lab) [address] [facility], [place], [address], 03/30/2024 16:01:10 03/18/20 24 03/18/2024 TESTO STERO NE, TOTAL AND FREE, SERUM (LC-M S/MS) testosterone , total, S 86 NG/dL 8-60 high ----- ----- ----- ----A DDITI ONAL INFOR MATIO N---- ----- ----- ----- Testi ng perfo rmed by Edgar Lopez atjerald matias Mass Spect romet ry (LC-M S/MS) . This test was devel oped and its perfo rmanc e carlie cteri stics deter mined by [facility] in a sandi r consi stent with CLIA requi remen ts. This test has not been clear ed or appro anaya by the U.S. Food and Drug Admin istra tion. Test Perfo rmed by: [facility] - [place] [address], [place] [address] Lab Direc tor: Justyn Stokes nn Ph.D. ; CLIA# [id number] Not Available [facility] (Lab) [address], [place], [address], 03/30/2024 16:01:10 04/01/20 24 04/01/2024 US, pelvi s No observ ation record ed. [facility] [address], [place], [address], 04/01/2024 13:32:56 04/01/20 24 04/01/2024 US, trans vagin al No observ ation record ed. [facility] [address], [place], [address], 04/01/2024 13:33:10 04/01/20 24 04/01/2024 US, pelvi s No observ ation record ed. [email or web address] [address], [place], [address], 04/02/2024 22:58:06 Result Notes None recorded. Problems Name Problem SNOMED Code Status Onset Date Resolution Date Notes Provider Name and Address Organization Details Recorded Time Laparoscopic sleeve gastrectomy Active 2014 Yoana Davis MD [address], [place], [address], [facility] 14:08:42 Female hirsutism 47742658 Active 2020 Yoana Davis MD [address], [place], [address], [facility] 14:21:23 Tobacco user 808211267 Active 2020 Yoana Davis MD [address], [place], [address], [facility] 14:21:26 Problem Notes None recorded. Procedures Surgical History Date Name Laterality Status Provider Name and Address Organization Details Recorded Time 03/18/20 24 Date of Last Pap Smear completed Jojo Carrasco [facility] 04/22/2024 11:16:59 06/17/20 17 procedure on back completed Krystaladin Ford [facility] 04/19/2021 14:09:33 08/17/19 15 laparoscopic sleeve gastrectomy completed Krystaladin Ford [facility] 04/19/2021 14:08:43 08/17/19 15 cholecystectomy completed Krystaladin Ford [facility] 04/19/2021 14:08:53 Imaging Results Imaging Date Name Status LastModified by Organization Details LastModified Time 04/01/2024 US, pelvis completed hiram Quezada [address], [place], [address], 04/01/2024 13:32:56 04/01/2024 US, transvaginal completed hiram ballard [address], [place], [address], 04/01/2024 13:33:10 04/01/2024 US, pelvis completed [email or web address] [address], [place], [address], 04/02/2024 22:58:06 Procedure Notes None recorded. Medical Equipment None Reported. Allergies Allergen ID Allergen Name Allergen Category Reaction Reaction Severity Criticality Documentation Date Start Date Code Code System Note Provider Name and Address Organization Details Recorded Time 97603 chlorhexi dine medicatio n Not available Not available Not available 04/19/2021 2358 RxNorm Krystal tran [facility] 13:59:23 86154 tramadol medicatio n Not available Not available Not available 04/19/2021 77653 RxNorm Krystal tran [facility] 13:59:36 Medications Name Sig Start Date Stop Date Status Note LastModified by Organization Details LastModified Time amoxicillin 500 mg capsule TAKE 1 CAPSULE BY MOUTH EVERY 8 HOURS FOR 10 DAYS 10/21 completed Not Available Not Available Not Available spironolacto ne 100 mg tablet Take [...] Not Available Not Available Not Available Lexapro 10/21 completed Not Available Not Available Not Available Vitals Date Recorded Body height Body mass index (BMI) Body weight Systolic blood pressure Diastolic blood pressure Provider Name and Address Organization Details Last Updated DateTime 05/10/2021 160.02 cm 28 kg/m2 95029.59 g 115 mm[Hg] 72 mm[Hg] Krystal Ford [facility] 1 11:31:53 Date Recorded Body height Body mass index (BMI) Body weight Systolic blood pressure Diastolic blood pressure Provider Name and Address Organization Details Last Updated DateTime 03/18/2024 160.02 cm 28.7 kg/m2 01208.96 g 110 mm[Hg] 69 mm[facility]Hg[facility] 12:10:27 Date Recorded Body height Body mass index (BMI) Body weight Systolic blood pressure Diastolic blood pressure Provider Name and Address Organization Details Last Updated DateTime 04/22/2024 160.02 cm 29.8 kg/m2 28607.52 g 107 mm[Hg] 71 mm[Hg] [facility] 11:26:27 Date Recorded Body height Body mass index (BMI) Body weight Systolic blood pressure Diastolic blood pressure Provider Name and Address Organization Details Last Updated DateTime 10/21/2024 160.02 cm 32.4 kg/m2 07835.4 g 116 mm[Hg] 67 mm[Hg] Alexandra Pradhan [facility] 5 11:24:21 Social History Question Answer Notes LastModified by Organizat ion Details LastModified Time Do You Have An Advance Directive? No Information not available 10/21/2024 What Is Your Level Of Alcohol Consumption? Occasional Information not available 10/21/2024 How Many Years Have You Consumed Alcohol? 20 Information not available 10/21/2024 Are You Blind Or Do You Have Difficulty Seeing? No [email or web address] Information not available 03/17/2024 What Is Your Level Of Caffeine Consumption? Heavy Information not available 10/21/2024 In The 14 Days Before Symptom Onset, Have You Had Close Contact With A Laboratory-confir med COVID-19 While That Case Was Ill? No Information not available 03/17/2024 In The 14 Days Before Symptom Onset, Have You Had Close Contact With A Person Who Is Under Investigation For COVID-19 While That Person Was Ill? No [email or web address] Information not available 03/17/2024 Have You Been To An Area Known To Be High Risk For COVID-19? No [email or web address] Information not available 03/17/2024 Are You Deaf Or Do You Have Serious Difficulty Hearing? No [email or web address] Information not available 03/17/2024 What Type Of Diet Are You Following? REGULAR Information not available 10/21/2024 What Is The Highest Grade Or Level Of School You Have Completed Or The Highest Degree You Have Received? 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 No Information not available 10/21/2024 Do You Use Protection During Sex? No Information not available 10/21/2024 Do You Have Smoke And Carbon Monoxide Detectors In Your Home? Yes [email or web address] Information not available 03/17/2024 How Much Tobacco Do You Smoke? No Information not available 10/21/2024 Do You Use Any Illicit Or Recreational Drugs? Yes Information not available 10/21/2024 Do You Use Sunscreen Routinely? Yes [email or web address] Information not available 03/17/2024 Have You Used IV Drugs? No Information not available 10/21/2024 Sex: Unknown Functional Status Question Answer Note LastModified by Organizat ion Details LastModified Time Do you have difficulty walking or climbing stairs? No Information not available 03/17/2024 Are you able to walk? YESWOREST [email or web address] Information not available 03/17/2024 Are you able to care for yourself? Yes [email or web address] Information not available 03/17/2024 Do you have difficulty dressing or bathing? No Information not available 03/17/2024 What is your exercise level? Occasional Information not available 10/21/2024 Mental Status None recorded. Family History Relationship Description Onset Age of this Age Resolved Age Notes LastModified by Organization Details LastModified Time Mother Anemia [email or web address] Not available 14:08:03 Brother Asthma [email or web address] Not available 0 04/19/2021 14:08:08 Maternal Grandfather Diabetes mellitus [email or web address] Not available 2020 14:08:16 Sister Polycystic ovary syndrome [email or web address] Not available 2024 11:07:03 Medical History Condition Response Allergies (Food, seasonal, environmental ) N Other N Drug/Latex Allergies/Reactions N Blood Transfusion N Breast Cancer N Dermatologic Disorders N Lung Disease N Defects or Inherited Disease N Breast Problem N Gestational Diabetes N Hematologic disorders N Anesthesia Complications N History of STI N Deep Vein Thrombosis N Polycystic ovary syndrome N Anxiety Disorder N Autoimmune disease N Arthritis N Polyps N Infertility N Acid Reflux (GERD) N History of abnormal pap N Cancer N Varicosities N Stroke N Neurologic/Epilepsy N Endometriosis N High Cholesterol N Fibromyalgia N Headaches N Kidney Disease N Heart Problems N Thyroid Problems N Kidney or Bladder Problems N GI Problems N Eating Disorder [...] Pap N Flow Heavy Date of LMP 10/16/2024 On BCP's at Conception? N N Was last menstrual period normal Y STIs/STDs N HPV Vaccine N Duration of Flow (days) 7 10 Current Control Method Partner Vas ectomy Age at First Child 24 Frequency of Cycle (Q days) 27 Sexually Active? Y Menses Monthly Y Age of first menstrual cycle 9 Date of Last Pap Smear 03/18/2024 Sexual Problems? N LMP Definite N Obstetrics History GPAL:G 2 P 2 0 0 2 Type Value Full Term 2 Living 2 Total 2 Past Encounters Encounter ID Performer Location Encounter Start Date Encounter Closed Date Diagnosis/Indication Diagnosis SNOMED-CT Code Diagnosis ICD10 Code Diagnosis Note [id number] Yoana Davis MD [facility] [address] [address] 04/19/2021 13:49:54 04/19/2021 15:18:11 Gynecologic examination 32942841 Z01.419 Female hirsutism 7530337 9 L68.0 Tobacco user 452217252 Z 72.0 [id number] Yoana Davis MD [facility] [address],[place] [address] 05/10/2021 11:27:32 05/10/2021 13:13:49 Polycystic ovary syndrome 854101059 E28.2 Gastroesop hageal reflux disease 584601526 K21.9 Medication monitoring 39 3308505 Z51.81 [id number] ABBY Ramirez [facility] [address],[place] [address] 03/18/2024 12:01:46 03/18/2024 13:56:58 Gynecologic examination 74832986 Z01.419 WWEpap updateddec lined STI screenmamm ogram order given - schedule after 40 bdernesto ballard labs UTD/PCP It is strongly advised to [...] have been answered. Abnormal u terine bleeding [id number] 9100 N93.9 The patient and I discussed [...] care. Screening for malignant neoplasm of breast 473020894 Z12.39 [id number] [facility] [address],[facility] [place] [address] 04/01/2024 12:13:55 04/01/2024 13:31:44 Menorrhagia 448892914 N92.0 [id number] Jason Yuen MD [facility] [address] [address] 04/22/2024 10:44:40 04/22/2024 12:15:02 Menorrhagia [id number] N92.0 This patient is a 38-year-ol d [...] on the patient's care in total. Dysmenorrhea [id number] N 94.6 [id number] Jason Yuen MD [facility] [address] [address] 10/21/2024 11:06:37 10/24/2024 10:20:30 Menorrhagia [id number] N92.0 This patient is a 39-year-ol d female with severe menorrhagi a. We agreed to perform robotic assisted hysterecto my with bilateral salpingect mia. She understand s risks, benefits, and alternativ es. She has completed informed consent process and is ready to proceed. Health Concerns Section Related Observation LastModified by Organization Detai ls LastModified Time None Recorded Concern Status LastModified by Organization Details LastModified Time None Recorded Advance Directives Directive N: Payers Encounter Date Sequence Insurance Name Policy Number Policy Serrano Covered Member ID Serrano Member ID Guarantor Name 05/10/2021 1 [place] [address] Hedrick [id number] Malini Hedrick 03/18/2024 1 [place] [address] Hed[address] [id number] Malini Hedrick 04/01/2024 1 [place] [address] [id number] Malini Hedrick 04/22/2024 1 [place] 132 Angus Hedrick [id number] Malini Hedrick 10/21/2024 1 [facility] - DOS 08/17/2024 AND AFTER [id number] Angus Hedrick [id number] Malini Hedrick Notes Date Note Type Note Provider Name and Address Organization Details Recorded Time 05/10/2021 text/html 35yo her e to discuss labs. 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 Periods still mostly regular, but getting more irregular over time. Didn't start spironolalctone because having bad GERD sx. PCP took her off reflux med. Yoana Davis MD [address], [place], [address], [facility] 05/10/2021 13:02:45 03/18/2024 text/html Annual GYNReport [...] iron infusions for anemia ABBY Ramirez [address], [place], [address], [place] [facility] 03/18/2024 13:55:14 04/22/2024 text/html [...] care in total. Jason Yuen MD [address], [place], [address], [facility] 04/22/2024 12:09:12 10/21/2024 text/html this patient is a 39-year-old female with severe menorrhagia. We have agreed to perform robotic assisted hysterectomy with bilateral salpingectomy. The patient understands the procedure. The procedure was described to the patient in great detail. the patient also understands the risks. The risks were also explained in detail. She understands that injuries May occur during surgery. She understands these injuries can result in hospitalization, more surgery, and severe illness. She understands there is risk of hemorrhage and infection. Jason Yuen MD [address], [place], [address], [facility] 10/21/2024 22:32:41 OBGyn Episode Ob Episode Information Episode Created Date Number of Fetuses Patient Bloodtype Patient rh Status Prepregnancy Weight lbs Domestic Partner Domestic Partner Phone Father Name Freezer Tunnel Operator Status 04/19/20 21 1 CLOSED Fetus Data First Name Last Name Admitted to NICU Weight (g) Sex Living Outcome Pediatric Complications Fetus ID Race Codes Race Delivery Type 4535.92 M Full Term 55000 Vaginal Delivery Marlon Calculation Initial Marlon Date [...] Domestic Partner Domestic Partner Phone Father Name Freezer Tunnel Operator Status 04/19/20 21 1 CLOSED Fetus Data First Name Last Name Admitted to NICU Weight (g) Sex Living Outcome Pediatric Complications Fetus ID Race Codes Race Delivery Type 3770.25 6704 M Full Term [id number] Vaginal Delivery Marlon Calculation Initial Marlon Date [...]
--- OUTSIDE RECORDS SUMMARY | 2024-10-26 00:43 | XMS_ITS | Patient Health Summary ---
Author Organization [facility] Address [address] [place] [address] Care Team Providers Care Vulcanizer Name Role Phone Sotero Krause MD Primary Care Provider [phone] Note from [facility],non-owned Affiliates and Associated Physician Practices is amultiple site organization consisting of ambulatory clinics and hospital sitesin [place], [place], [place] and [place]. This disclosure is being madepursuant to the Care Everywhere program and may not contain all information available regarding this patient. Last updated 18.[facility] Radius App Allergies * Chlorhexidine(Rash) -Medium Criticality * Tramadol(Nausea [...] Comments Blood Pressure 111/57 06/29/2024 3:06 PM ED[facility]ERS Pulse 74 06/29/2024 3:06 PM [facility] Temperature 36.9 C (98.4 F) 06/29/2024 3:06 PM [facility] Respiratory Rate - - Oxygen Saturation 99% 06/29/2024 3:06 PM [facility] Inhaled Oxygen Concentration - - Weight 77.5 kg (170 lb 12.8 oz) 06/29/2024 3:06 PM [facility] Height 160 cm (5' 3 ) 06/29/2024 3:06 PM [facility] Body Mass Index 30.26 06/29/2024 3:06 PM [facility] Procedures * BENNY URINE(Performed 06/29/2024) Performed for [...] TO MICROSCOPIC NO CULTURE (06/29/2024 4:28 PM [facility]) Pathologist [facility] Specific Mobile UA 1.020 1.005 - 1.030 [facility] ACCOUNT [...] CATCH PROCEDURE / Unknown 06/29/2024 4:28 PM [facility] 06/29/2024 Comment:Urine - clean catch R Narrative [facility] ACCOUNT BILL - 07/06/2024 9:07 PM [facility] Performed at: 01 - [facility] [address] [id number] Pulp Grinder: Chandler Ruiz PhD, Phone: [phone] Marc Griffin MD LAB - URINALYSIS ORD ERABLES [facility] ACCOUNT BILL [address] [place] [address] * BENNY URINE (06/29/2024 4:28 PM [facility] [employer]) Interpretation BENNY Comment [facility] ACCOUNT BILL Comment:No monoclonality det ected. Urine URINE / Unknown 06/29/2024 4 :28 PM [facility] 06/29/2024 Comment:Urine - clean catch R Narrative [facility] ACCOUNT BILL - 07/06/2024 9:07 PM [facility]formed [facility]: - [facility] [address] [place], [place] [id number] Pulp Grinder: Chandler Ruiz PhD, Phone: [phone] Marc Griffin MD LAB - URINE CHEMISTR Y ORDERABLES [facility] ACCOUNT BILL [address] [place] [address] * VON WILLEBRAND EVALUATION PANEL (06/29/2024 4:28 PM [facility]) Factor VIII Activity 109 56 - 140 % [facility] INSURANCE BILL von Willebrand Factor Antigen 111 50 - 200 % [facility] INSURANCE BILL von Willebrand Factor Activity 115 50 - 200 % [facility] INSURANCE BILL Comment: Performed at: - [facility] Digital [address] [place], [place] [id number] Pulp Grinder: Delaney Ewing MD, Phone: [phone] Interpretation Note [facility] INSURANCE BILL Comment: [...] For questions regarding panel interpretation, please contact [facility] at . DISCLAIMER These assessments and interpretations [...] (1) The National Heart, Lung and Blood [place]. The Diagnosis, Evaluation and Management of von Willebrand Disease. MD Justin: National Institutes of Health Publication 08-5832. 2007. Available at http://www.nhlbi.nih.gov/guidelines/vwd/. (2) David CHONG et al. Am J Hematol. 2009; 84(6):366-370. (3) Jonathan Bonilla et al. Haemophilia. 2004;10(3):199-217. (4) Teni CARLINE et al. Haemophilia. 2004; 10(3):218-231. Blood BLOOD SPECIMEN / Unknown 06/29/2024 4:28 PM [facility] 06/29/2024 Comment:Blood Release to [facility] leonarda Drummond [facility] INSURANCE BILL - 07/01/2024 6:14 AM [facility] Test(s) 520201-mhh Willebrand Factor (vWF) Ag was developed and its performance characteristics determined by [facility]. It has not been cleared or approved by the Food and Drug Administration. Performed at: 01 - [address] [id number] Pulp Grinder: Michelle Foreman MD, Phone: [phone] Marc Griffin MD LAB - COAGULATION OR DERABLES [facility] INSURANCE BILL [address] [place] [address] * (ABNORMAL) IRON + TIBC + FERRITIN (06/29/2024 4:27 PM [facility]) Pathologist [facility] TIBC 222(L) 250 - 450 ug/dL [facility] ACCOUNT BILL UIBC 162 131 - 425 ug/dL [facility] ACCOUNT BILL Iron 60 27 - 159 ug/dL [facility] ACCOUNT BILL Iron Saturation 27 15 - 55 % [facility] ACCOUNT BILL Ferritin 126 15 - 150 ng/mL [facility] ACCOUNT BILL Blood BLOOD SPECIMEN / Unknown 06/29/2024 4:27 PM [facility] 06/29/2024 Comment:Blood Release to pat i Narrative [facility] ACCOUNT BILL - 06/30/2024 10:13 AM [facility] Performed at: 01 - [facility] [address] [id number] Pulp Grinder: Chandler Ruiz PhD, Phone: [phone] Marc Griffin MD LAB - CHEMISTRY MARYANN BARTLETT Performing Organization Address City/[facility]/ZIP Co de Phone Number [facility] ACCOUNT BILL [address] [place] [address] * IMMUNOFIXATION BLOOD (06/29/2024 4:27 PM [facility]) [facility] Immunofixation Result Comment [facility] ACCOUNT BILL Comment:No monoclonality det ected. IgG Quantitative 834 586 - 1,602 mg/dL [facility] ACCOUNT BILL IgM Quantitative 92 26 - 217 mg/dL [facility] ACCOUNT BILL Blood BLOOD SPECIMEN / Unknown 06/29/2024 4:27 PM [facility] 06/29/2024 Comment:Blood Release to pat i Narrative [facility] ACCOUNT BILL - 07/01/2024 3:11 PM [facility] Performed at: 01 - [facility] [address] [id number] Pulp Grinder: Chandler Ruiz PhD, Phone: [phone] Marc Griffin MD LAB - CHEMISTRY MARYANN BARTLETT Performing Organization Address City/[facility]/ZIP Co de Phone Number [facility] ACCOUNT BILL [address] [place] [address] * CELIAC DISEASE COMPREHENSIVE (06/29/2024 4:27 PM [facility]) Antigliadin Antibody IgA 3 0 - 19 [...] BLOOD SPECIMEN / Unknown 06/29/2024 4:27 PM [facility] 06/29/2024 Comment:Blood Release to [facility] i Narrative [facility] ACCOUNT BILL - 07/01/2024 8:21 AM [facility] [employer] Performed at: - [facility] [address] [place] [id number] Pulp Grinder: Chandler Ruiz PhD, Phone: [phone] Marc Griffin MD LAB - CHEMISTRY MARYANN BARTLETT [facility] ACCOUNT BILL [address] [place] [address] * RHEUMATOID FACTOR BLOOD QUANTITATIVE (06/29/2024 4:27 PM [facility]) Rheumatoid Factor <13 <30 IU/mL [facility] ACCOUNT BILL Blood BLOOD SPECIMEN / Unknown 06/29/2024 4:27 PM [facility] [employer] 06/29/2024 Comment:Blood Release to pat i Narrative [facility] ACCOUNT BILL - 06/29/2024 9:07 PM [facility] Performed at: [address] [place] [address] [address] [place], [place] [id number] Pulp Grinder: Jairon Stoo MD, Phone: [phone] Marc Griffin MD LAB - CHEMISTRY MARYANN BARTLETT [facility] ACCOUNT BILL [address] [place] [address] * GERARD BLOOD SCREEN W/REFLEX TITER (06/29/2024 4:27 PM [facility]) GERARD Negative Negative [facility] ACCOUNT BILL Comment: Methodology: Indirect Immunofluorescence Assay (IFA) utilfransico sharma Hep-2-Gamma cells. Blood BLOOD SPECIMEN / Unknown 06/29/2024 4:27 PM [facility] 06/29/2024 Comment:Blood Release to pa ti Narrative [facility] ACCOUNT BILL - 06/30/2024 1:10 PM [facility] [employer] Performed at: [address] [place] [id number] Pulp Grinder: Jairon Soto MD, Phone: [phone] Marc Griffin MD LAB - CHEMISTRY MARYANN BARTLETT Performing Organization Address [facility] Co de Phone Number [facility] ACCOUNT BILL [address] [place] [address] * COPPER BLOOD (06/29/2024 4:27 PM ED[employer]PPERS) Pathologist [facility] Copper 80 80 - 158 ug/dL [facility] ACCOUNT BILL Comment:Detection Limit = 5 Blood BLOOD SPECIMEN / Unknown 06/29/2024 4:27 PM [facility] [employer] 06/29/2024 Comment:Blood Release to pat i Narrative [facility] ACCOUNT BILL - 07/01/2024 9:07 PM [facility] [employer] Test(s) 803170-Ctlnxe, Serum or Plasma was developed and its performance characteristics determined by [facility]. It has not been cleared or approved by the Food and Drug Administration. Performed at: [address] [id number] Pulp Grinder: Michelle Foreman MD, Phone: [phone] Marc Griffin MD LAB - CHEMISTRY MARYANN BARTLETT Performing Organization Address City/[facility]/ZIP Co de Phone Number [facility] ACCOUNT BILL [address] [place] [address] * PATHOLOGY PERIPHERAL SMEAR REVIEW (06/29/2024 4:27 PM [facility]) Pathologist [facility] Path Review Confirmed 06/30/2024 12:[address] [facility] Blood BLOOD SPECIMEN / Unknown Venipuncture / Unknown 06/29/2024 4:27 PM [facility] 06/29/2024 5:28 PM [facility] Narrative [facility] - 06/30/2024 12:02 PM [facility] Final Diagnosis- Peripheral blood smear review: 1. [...] Griffin MD LAB - PATHOLOGY/CYTO LOGY ORDERABLES [facility] [address] [place] [address] * CBC WITH DIFFERENTIAL (06/29/2024 4:27 PM [facility]) Pathologist [facility] WBC 6.7 4.0 - 10.7 x10E9/L 06/29/2024 6:[address] [facility] RBC Count 4.13 3.90 - 5.20 x10E12/L 06/29/2024 6:[address] [facility] Hemoglobin 12.9 11.9 - 15.8 g/dL 06/29/2024 6:[address] [facility] Hematocrit 39.7 34.8 - 46.1 % 06/29/2024 6:[address] [facility] MCV 96.1 80.0 - 98.0 fL 06/29/2024 6:[address] [facility] MCH 31.2 26.7 - 33.6 pg 06/29/2024 6:[address] [facility] MCHC 32.5 31.7 - 36.3 g/dL 06/29/2024 6:[address] [facility] RDW-CV 13.2 11.3 - 14.8 % 06/29/2024 6:[address] [facility] Platelet Count 237 150 - 420 x10E9/L 06/29/2024 6:[address] [facility] MPV 10.5 7.8 - 11.4 fL 06/29/2024 6:[address] [facility] Neutrophil % 59.8 41.0 - 74.0 % 06/29/2024 6:[address] [facility] Lymphocyte % 29.2 17.0 - 47.0 % 06/29/2024 6:[address] [facility] Monocyte % 6.5 3.0 - 11.0 % 06/29/2024 6:[address] [facility] Eosinophil % 3.3 0.0 - 7.0 % 06/29/2024 6:[address] [facility] Basophil % 0.6 0.0 - 1.6 % 06/29/2024 6:[address] [facility] Immature Granulocytes % 0.6 0.0 - 1.0 % 06/29/2024 6:[address] [facility] Neutrophil Absolute 4.03 1.60 - 7.50 x10E9/L 06/29/2024 6:[address] [facility] Lymphocyte Absolute 1.97 1.00 - 4.40 x10E9/L 06/29/2024 6:[address] [facility] Monocyte Absolute 0.44 0.15 - 1.00 x10E9/L 06/29/2024 6:[address] [facility] Eosinophil Absolute 0.22 0.00 - 0.60 x10E9/L 06/29/2024 6:[address] [facility] Basophil Absolute 0.04 0.00 - 0.13 x10E9/L 06/29/2024 6:[address] [facility] Blood BLOOD SPECIMEN / Unknown Venipuncture / Unknown 06/29/2024 4:27 PM [facility] 06/29/2024 5:28 PM [facility] [employer] Marc Griffin MD LAB - HEMATOLOGY ORD ERABLES [facility] [address] [place] [address] * (ABNORMAL) COMPREHENSIVE METABOLIC PANEL (06/29/2024 4:27 PM [facility] [employer]) Pathologist [facility] Glucose 104(H) 70 - 99 mg/dL [facility] [...] BLOOD SPECIMEN / Unknown 06/29/2024 4:27 PM [facility] [employer] 06/29/2024 Comment:Blood Release to pat i Narrative [facility] ACCOUNT BILL - 06/29/2024 9:07 PM [facility] Performed at: [address] [place] [address] [place] [id number] Pulp Grinder: Jairon Soto MD, Phone: [phone] Marc Griffin MD LAB - CHEMISTRY MARYANN BARTLETT [facility] ACCOUNT BILL [address] [place] [address] * LDH BLOOD (06/29/2024 4:27 PM ED[employer] [employer]ERS) LDH 157 125 - 220 U/L [facility] ACCOUNT BILL Blood BLOOD SPECIMEN / Unknown 06/29/2024 4:27 PM [facility] [employer] 06/29/2024 Comment:Blood Release to pat i Narrative [facility] ACCOUNT BILL - 06/29/2024 9:07 PM [facility] [employer] Performed at: [address] [place] [id number] Pulp Grinder: Jairon Soto MD, Phone: [phone] Marc Griffin MD LAB - CHEMISTRY MARYANN BARTLETT Performing Organization Address City/[facility]/ZIP Co de Phone Number [facility] ACCOUNT BILL [address] [place] [address] * VITAMIN B12 FOLATE PANEL (06/29/2024 4:27 PM [facility]ERS) Vitamin B12 673 213 - 816 pg/mL [facility] ACCOUNT BILL Folate 11.1 7.0 - 31.4 ng/mL [facility] ACCOUNT BILL Blood BLOOD SPECIMEN / Unknown 06/29/2024 4:27 PM [facility] [employer] 06/29/2024 Comment:Blood Release to pat i Narrative [facility] ACCOUNT BILL - 06/29/2024 11:07 PM [facility] [employer] Performed at: [address] [place] [id number] Pulp Grinder: Jairon Soto MD, Phone: [phone] Marc Griffin MD LAB - CHEMISTRY MARYANN BARTLETT Performing Organization Address City/[facility]/ZIP Co de Phone Number [facility] ACCOUNT BILL [address] [place] [address] * CBC W AUTO DIFFERENTIAL (CANCER CARE) (06/29/2024 4:13 PM [facility]PPERS) WBC 6.9 4.4 - 10.7 x10E9/L 06/29/2024 4:25 PM [facility] Neutrophils % 60.8 44.0 - 73.0 % 06/29/2024 4:25 PM [facility] Lymphocytes % 28.0 20.0 - 43.0 % 06/29/2024 4:25 PM [facility] [employer] Monocytes % 6.4 5.0 - 13.0 % 06/29/2024 4:25 PM [facility] Eosinophils % 3.8 0.0 - 6.0 % 06/29/2024 4:25 PM [facility] [employer] Basophils % 0.4 0.0 - 2.0 % 06/29/2024 4:25 PM [facility] [employer] Immature Granulocytes 0.6 <=1 % 06/29/2024 4:25 PM [facility] [employer] Neutrophil Absolute 4.20 2.01 - 7.14 x10E9/L 06/29/2024 4:25 PM [facility] Lymphocytes Absolute 1.93 1.07 - 3.94 x10E9/L 06/29/2024 4:25 PM [facility] [employer] Monocytes Absolute 0.44 0.26 - 1.07 x10E9/L 06/29/2024 4:25 PM [facility] [employer] Eosinophils Absolute 0.26 0 - 0.47 x10E9/L 06/29/2024 4:25 PM [facility] [employer] Basophils Absolute 0.03 0 - 0.08 x10E9/L 06/29/2024 4:25 PM [facility] [employer] [facility] RBC 3.98 3.80 - 5.20 x10E12/L 06/29/2024 4:25 PM [facility] [employer] Hemoglobin 12.7 12.0 - 15.6 gm/dL 06/29/2024 4:25 PM [facility] [employer] Hematocrit 37.6 35.9 - 45.5 % 06/29/2024 4:25 PM [facility] [employer] MCV 94.5 80.7 - 98.3 fl 06/29/2024 4:25 PM [facility] [employer] MCH 31.9 26.7 - 34.0 pg 06/29/2024 4:25 PM [facility] [employer] MCHC 33.8 30.8 - 35.9 gm/dL 06/29/2024 4:25 PM [facility] [employer] RDW-CV 13.4 12.1 - 14.9 % 06/29/2024 4:25 PM [facility] [employer] Platelet Count 222 153 - 416 x10E9/L 06/29/2024 4:25 PM [facility] [employer]PP[facility] MPV 9.9 9.4 - 12.9 fl 06/29/2024 4:25 PM [facility] [employer] NRBC 0.0 <=0 /100 WBC 06/29/2024 4:25 PM [facility] Blood BLOOD SPECIMEN / Unknown 06/29/2024 4:13 PM [facility] [facility] 06/29/2024 4:13 PM [employer] Marc Griffin MD LAB - HEMATOLOGY ORD ERABLES Performing Organization Address City/[facility] Co de Phone Number [facility] [address] [place] [address] * (ABNORMAL) RETIC COUNT (06/29/2024 4:13 PM ED[employer] INKER UPPERS) Pathologist [facility] Reticulocyte Count 1.63 0.5 - 1.7 % 06/29/2024 4:25 PM [facility] Reticulocyte Immature Fractionated 4.5(L) 9.3 - 17.4 % 06/29/2024 4:25 PM [facility] [facility] Blood BLOOD SPECIMEN / Unknown 06/29/2024 4:13 PM [employer] 06/29/2024 4:13 PM [employer] Marc Griffin MD LAB - HEMATOLOGY ORD ERABLES Performing Organization Address City/[facility]/ZIP Co de Phone Number [facility] [address] [place] [address] Care Teams Vulcanizer Relationship Specialty Start Date End Date Sotero Krause MD [address] [place] [id number] PCP - General Family Medicine 06/20/24
--- OUTSIDE RECORDS SUMMARY | 2024-10-26 00:43 | XMS_ITS | Encounter Summary ---
Author Organization [facility] Address [address] [place] [address] Care Team Providers Care Document Image Technician Name Role Phone Sotero Krause MD Primary Care Provider [phone] Encounter Details Date Type Department Care Team (Late st Contact Info) Description 12/12/2021 Hospital Orders Only [facility] [address] [place] [address] Sotero Krause MD [address] [place] [address] Social History Tobacco Use Types Packs/Day Years Used Date Smoking Tobacco: Never Assessed Comments Unknown Sex and Gender Information Value Date Recorded Sex Assigned at Not on file Legal Sex Female 11:27 PM VP OF PRODUCT Gender Identity Not on file Sexual Orientation Not on file documented as of this encounter Plan of Treatment Not on file documented as of this encounter Visit Diagnoses Not on filedocumented in this encounter Care Teams Document Image Technician Relationship Specialty Start Date End Date Sotero Krause MD [address] [place] [address] PCP - General FAMILY PRACTICE 05/20/21 documented as of this encounter
--- OUTSIDE RECORDS SUMMARY | 2024-10-26 00:43 | XMS_ITS | Referral Summary ---
Author Organization [facility] Address [address] [place] [address] Care Team Providers Care Equity Holder Name Role Phone Sotero Krause MD Primary Care Provider [phone] Source Comments [facility],non-owned Affiliates and Associated Physician Practices is amultiple site organization consisting of ambulatory clinics and hospital sitesin [place], [place]. This disclosure is being madepursuant to the Care Everywhere program and may not contain all information available regarding this patient. Last updated 18.[email or web address] Allergies Active Allergy Reactions Criticality Noted Date [...] Comments Blood Pressure 111/57 06/29/2024 3:06 PM NEONATAL PEDIATRIC NURSE Pulse 74 06/29/2024 3:06 PM NEONATAL PEDIATRIC NURSE Temperature 36.9 C (98.4 F) 06/29/2024 3:06 PM NEONATAL PEDIATRIC NURSE Respiratory Rate - - Oxygen Saturation 99% 06/29/2024 3:06 PM NEONATAL PEDIATRIC NURSE Inhaled Oxygen Concentration - - Weight 77.5 kg (170 lb 12.8 oz) 06/29/2024 3:06 PM NEONATAL PEDIATRIC NURSE Height 160 cm (5' 3 ) 06/29/2024 3:06 PM NEONATAL PEDIATRIC NURSE Body Mass Index 30.26 06/29/2024 3:06 PM NEONATAL PEDIATRIC NURSE Plan of Treatment Not on file Procedures Procedure Name Priority Date/Time Associated Diagnosis Comments COMPREHENSIVE METABOLIC PANEL Routine 06/29/2024 4:27 PM NEONATAL PEDIATRIC NURSE Iron deficiency anemia due to chronic blood loss from Last 3 Months or Most Recently Relevant to Health Maintenance Results * (ABNORMAL) COMPREHENSIVE METABOLIC PANEL (06/29/2024 4:27 PM NEONATAL PEDIATRIC NURSE) Glucose 104(H) 70 - 99 mg/dL [facility] [...] BLOOD SPECIMEN / Unknown 06/29/2024 4:27 PM NEONATAL PEDIATRIC NURSE 06/29/2024 Comment:Blood Release to pat i Narrative [facility] ACCOUNT BILL - 06/29/2024 9:07 PM NEONATAL PEDIATRIC NURSE Performed at: [address] [place] [id number] Director Investment Banking: Jairon Soto MD, Phone: [phone] Marc Griffin MD LAB - CHEMISTRY MARYANN BARTLETT [facility] ACCOUNT BILL [address] [place] [address] from Last 3 Months or Most Recently Relevant to Health Maintenance Care Teams Equity Holder Relationship Specialty Start Date End Date Sotero Krause MD [address] [place] [phone] PCP - General Family Medicine 06/20/24
--- OUTSIDE RECORDS SUMMARY | 2024-10-26 00:43 | XMS_ITS | Clinical Summary ---
Author Organization [facility] Address [address] [place] [place] [address] Phone Care Team Providers Care Pet Care Worker Name Role Phone Sotero Krause MD Primary Care Provider [phone] Allergies No known active allergies Medications escitalopram [...] this topic Medical Devices Implanted Type Area Claims Consultant Device Identifier Shelf Expiration Date Model / Serial / Lot Seamguard Bio 60 [id number] - [id number] Implanted:Qty: 4 on 05/16/2015 by Renaldo Alejandra MD at [facility] N/A: Stomach [employer] 01/14/2018 [id number] / / [id number] Insurance [facility] FEDERAL Advance Directives For more information, please contact: [phone] * Full Code (Latest Code Status on File) Date Activated Date Inactivated Comments 05/16/2015 5:37 AM 05/17/2015 2:46 PM * Full Code Date Activated Date Inactivated Comments 03/30/2015 9:06 AM 03/30/2015 2:53 PM * Full Code Date Activated Date Inactivated Comments 12/27/2014 6:33 AM 12/27/2014 4:19 PM Care Teams Pet Care Worker Relationship Specialty Start Date End Date Sotero Krause MD [address] [place] [address] PCP - General Family Practice 12/19/14
--- OUTSIDE RECORDS SUMMARY | 2024-10-26 00:43 | XMS_ITS | Clinical Summary ---
Author Organization [facility] Address [address] [place] [id number] Care Team Providers Care Battery Assembler Dry Cell Name Role Phone Sotero Krause MD Primary Care Provider [phone] Allergies Active Allergy Reactions Criticality Noted Date [...] on file Legal Sex Female 11:27 PM CLINICAL CODER Gender Identity Not on file Sexual Orientation [...] 3 Years 03/18/2027 03/18/2024 Cervical Cancer Screening [facility] HPV 03/18/2027 HPV Vaccines Aged Out [...] complete this topic Insurance BLUE CROSS BLUE [facility] Care Teams Battery Assembler Dry Cell Relationship Specialty Start Date End Date Sotero Krause MD [address] [place] [address] PCP - General FAMILY PRACTICE 05/20/21
--- OUTSIDE RECORDS SUMMARY | 2024-10-26 00:43 | XMS_ITS | Clinical Summary ---
Author Organization [facility] Address [address] [place] [address] Care Team Providers Care Ems Educator Name Role Phone Sotero Krause MD Primary Care Provider [phone] Source Comments [facility],non-owned Affiliates and Associated Physician Practices is amultiple site organization consisting of ambulatory clinics and hospital sitesin [place], [place], [place] and [place]. This disclosure is being madepursuant to the Care Everywhere program and may not contain all information available regarding this patient. Last updated 18.[facility] Allergies Active Allergy Reactions Criticality Noted Date [...] Comments Blood Pressure 111/57 06/29/2024 3:06 PM OPERATIONS FORESTER Pulse 74 06/29/2024 3:06 PM OPERATIONS FORESTER Temperature 36.9 C (98.4 F) 06/29/2024 3:06 PM OPERATIONS FORESTER Respiratory Rate - - Oxygen Saturation 99% 06/29/2024 3:06 PM OPERATIONS FORESTER Inhaled Oxygen Concentration - - Weight 77.5 kg (170 lb 12.8 oz) 06/29/2024 3:06 PM OPERATIONS FORESTER Height 160 cm (5' 3 ) 06/29/2024 3:06 PM OPERATIONS FORESTER Body Mass Index 30.26 06/29/2024 3:06 PM OPERATIONS FORESTER Plan of Treatment Health Maintenance Due Date [...] COMPREHENSIVE METABOLIC PANEL Routine 06/29/2024 4:27 PM OPERATIONS FORESTER Iron deficiency anemia due to chronic blood loss from Last 3 Months or Most Recently Relevant to Health Maintenance Results * (ABNORMAL) COMPREHENSIVE METABOLIC PANEL (06/29/2024 4:27 PM OPERATIONS FORESTER) Glucose 104(H) 70 - 99 mg/dL [facility] [...] BLOOD SPECIMEN / Unknown 06/29/2024 4:27 PM OPERATIONS FORESTER 06/29/2024 Comment:Blood Release to pat i Narrative [facility] ACCOUNT BILL - 06/29/2024 9:07 PM OPERATIONS FORESTER Performed at: [address] [place] [id number] Credit Operations Specialist: Jairon Soto MD, Phone: [phone] Marc Griffin MD LAB - NATALI BARTLETT [facility] ACCOUNT BILL [address] [place] [address] from Last 3 Months or Most Recently Relevant to Health Maintenance Care Teams Ems Educator Relationship Specialty Start Date End Date Sotero Krause MD [address] [place] [id number] PCP - General Family Medicine 06/20/24
[2024-10-26] MEDS: ACETAMINOPHEN 500 MG TABLET 1000 MG PO ×3 (06:18→17:26)
[2024-10-26] MEDS: LACTATED RINGERS 1,000 ML 30 ML IV CONT ×2 (06:20→09:26)
[2024-10-26] MEDS: KETOROLAC 15 MG/ML VIAL (*BKC) IV PUSH (06:21)
[2024-10-26] MEDS: SCOPOLAMINE 1 MG PATCH 1 PATCH TRANSDERM (06:40)
--- NOTE | 2024-10-26 06:42 | P.PNAN_ITS ---
Anes - Initial Pre Proc Eval Procedure: Operation Date: 10/26/24 07:30 Proposed Procedures p Robotic Assisted Hysterectomy with Bilateral Salpingectomy - Jason Yuen MD Date/Time: 10/26/24 06:42 Surgeon: Jason Yuen MD Pre Op Diagnosis: Menorrhagia Patient Data Age: 39 Gender: F Height: 1.61 m Weight: 82.4 kg Last Vital Signs Temp 36.5 C 10/26/24 06:03 Pulse 72 10/26/24 06:03 Resp 16 10/26/24 06:03 BP 107/62 10/26/24 06:03 Pulse Ox 99 10/26/24 06:03 O2 Del Method Room Air 10/26/24 06:03 Allergies Allergy/AdvReac Type Severity Reaction Status Date / Time chlorhexidine Allergy Intermediate RASH Verified 10/26/24 06:09 tramadol AdvReac Unknown Vomiting Verified 10/26/24 06:09 VICRYL SUTURES Allergy Severe Other Uncoded 10/26/24 06:09 Home Medications ?Medication ?Instructions ?Recorded ?Confirmed ?Type aripiprazole 5 mg tablet 5 mg PO HS 10/13/24 10/26/24 History escitalopram oxalate 20 mg tablet 20 mg PO HS 10/13/24 10/26/24 History Patient hx anesthesia problems: none Family hx anesthesia problems: none Results Review: All pre-operative results and documents have been reviewed as part of the pre- operative evaluation. [facility] Past Medical History Medical History (Updated 10/26/24 @ 06:42 by Sav Casillas MD) Anxiety Obesity Surgical History Surgical History (Updated 10/26/24 @ 06:42 by Sav Casillas MD) S/P gastric sleeve procedure Social History Social History Smoking packs per day: 0.5 Smoking cigarettes per day: 10.0 Years smoked: 28 Smoking pack-years: 14.00 Tobacco type: cigarettes and e-cigarettes/vaping Smoking end date: 06/17/24 Substance use: current Substance use type: marijuana Living arrangements: with family Spiritual care concerns: No Anes - Eval Final PreProcedure Day of Procedure 10/26/24 06:42 Patient weight: obese Heart: regular rate and rhythm Lungs: clear to auscultation Airway: Mallampati scale class II Neurological: alert and oriented Last oral intake: >/= 8 hours ASA classification: III Emergent: no Anesthetic plan: proceed Anesthesia type and monitoring: general ETT and standard monitoring Results Review: All pre-operative results and documents have been reviewed as part of the pre- operative evaluation. Informed Consent: The patient's anesthetic plan and its attendant risks and benefits were discussed with the patient/family/POA. Questions were solicited and answers provided to the satisfaction of the patient/family/POA.
[2024-10-26 07:01] LABS: BEDSIDEPREGUCG Negative (Negative)
--- NOTE | 2024-10-26 07:08 | WPDHPUPDATE1 ---
History and Physical Update Update Date/Time: 10/26/24 07:08 History and Physical has been reviewed, including an updated exam of the patient. There are NO changes in the patient's condition. Risks, benefits, and alternatives have been discussed and questions answered. Patient agrees to proceed with procedure.
[2024-10-26] MEDS: ceFAZolin 2 GM/D5W 50 ML 2 GM/50 ML BAG IVPB (07:30)
[2024-10-26] MEDS: METHYLENE BLUE 0.5% INJ 10 ML AMPULE 20 ML IRRIGATION (09:07)
--- NOTE | 2024-10-26 09:41 | P.OP_ITS ---
Procedure Note - Detailed Date of Procedure 10/26/24 Pre-op Diagnosis Menorrhagia Post-op Diagnosis Same Procedure Performed Robot assisted Total hysterectomy with bilateral salpingectomy. Surgeon Jason Yuen MD Anesthesia General Indications heavy vaginal bleeding, pelvic pain Findings normal-appearing uterus, ovaries, and left tube, right tube was partially resected. Some scarring over the posterior cul-de-sac peritoneum. Description of Procedure This patient was taken to the operating room. She was prepped and draped in the dorsal lithotomy position after induction of general anesthesia. The uterine manipulator and Roly cup were placed. This was done with a speculum and tenaculum. The speculum was placed. The cervix was grasped with a tenaculum. The stay sutures were placed at 3 and 9:00 a.m.. The stay sutures of 0 Vicryl were tied to the appropriately Size scope after it was slipped around the cervix.. The tip of the AKBAR manipulator was placed in the intrauterine cavity. The cup was slid into place around the cervix and into the fornices. It was locked into place. The sutures were then wrapped around the handle and tied under tension. A 8 mm skin incision was made in the left upper quadrant the abdomen. a 5 mm Visiport trocar was inserted into abdominal cavity and pneumoperitoneum was achieved. A 8 mm supraumbilical incision was made and a 8 mm trocar was insert ed into the intrauterine cavity under direct visualization of the scope. an 8 mm incision was made in the right upper quadrant of the abdomen and an 8 mm robotic trocar was placed the inter uterine cavity under direct visualization the scope. An 11 mm trocar was inserted in the right upper quadrant of the abdomen rectal is a cystoscope after an incision was made there as well. The robot was docked. Electronic Orientation of the robot was performed. Bilateral ureteral lysis was performed. This was done from the pelvic brim down to the uterine artery. This was done with careful dissection using sharp and blunt dissection. The fallopian tubes were removed bilaterally. The mesosalpinx around the fallopian tubes were cauterized transected with LigaSure cautery. This was done in a bilateral fashion from the ovary to the uterine cornua. The fallopian tube was transected at the uterine cornu and amputated. The tube was taken out the left lower quadrant trocar site. In a stepwise f ashion along the lateral aspects of the uterus the round ligament and broad ligaments were cauterized transected down to the level of the uterine arteries. A bladder flap was created in the bladder was moved distally to the end of the cervix and over the Roly cup. The bilateral uterine arteries were cauterized and transected. Colpotomy was then performed. In a circumferential fashion the vagina was transected using unipolar cautery. The incision was made down on the Roly cup. The uterus and cervix were taken out through the vagina. A pneumo occluder was placed in the vagina. The vaginal cuff was closed with a 0 V lock suture in a running fashion. The pelvis was irrigated with copious amounts antibiotic irrigation. The ureters were again examined and found to be intact and flowing freely under the uterine arteries into the bladder. The bladder was intact. It was examined directly. Cystoscopy was performed after administration of methylene blue. The cystoscope was inserted. Bladder was distended with fluid. The ureteric meatus was observed bilaterally. Blue fluid was seen to egress bilaterally. The bladder was drained and the cystoscope was withdrawn. The vagina was irrigated with Betadine solution after removal of the Pneumo occluder. the trocars were removed after the robot was undocked. The skin was closed with subacute or Dermabond. The patient was taken to recovery room. She was stable condition. Sponge lap and needle counts were correct x2. Estimated Blood Loss 125 Urine Output 800 Drains Yes Packing No Pathology Yes Complications No immediate complications Condition Stable Disposition Floor
[2024-10-26] MEDS: fentaNYL CITRATE INJ (*CRX) 100 MCG/2 ML VIAL 25 MCG IV PUSH ×8 (09:49→10:30)
--- NOTE | 2024-10-26 11:34 | ADMGEN ---
This patient, Malini Hedrick, was admitted to OB 2nd Floor Room 289-00. Patient/family oriented to hospital policies and general routines including ID bracelet, bed and alarms, visiting hours, pain management, procedures, bathroom and other care routines, personal items, smoking policy, room service/diet, and visiting hours. Information on how to activate the Rapid Response Team has been discussed. Patient/Family are encouraged to report perceived risks to care and to ask questions if they do not understand what they are told or what they should do.
[2024-10-26] MEDS: DEXTROSE 5%/0.45% SOD CHL 1,000 ML 125 ML IV CONT (11:52)
[2024-10-26] MEDS: SIMETHICONE 80 MG TAB.CHEW PO ×2 (11:54→17:25)
[2024-10-26] MEDS: oxyCODONE HCL (*CRX) 5 MG TAB IR PO ×2 (12:16→17:25)
[2024-10-26] MEDS: DOCUSATE SODIUM 100 MG CAPSULE PO (17:34)
[2024-10-26] MEDS: ESCITALOPRAM OXALATE 10 MG TABLET 20 MG PO (20:40)
[2024-10-26] MEDS: ARIPiprazole 5 MG TABLET PO (20:40)
[2024-10-27] MEDS: ACETAMINOPHEN 500 MG TABLET 1000 MG PO ×2 (00:30→05:40)
[2024-10-27 01:39] VITALS: BP 105/63; PULSE 77; RESP 18; TEMP 37.2; O2SAT 96
[2024-10-27 06:35] VITALS: BP 107/55; PULSE 72; RESP 18; TEMP 37.3; O2SAT 98
[2024-10-27 07:50] VITALS: BP 96/58; PULSE 68; RESP 18; TEMP 36.3; O2SAT 97
--- NOTE | 2024-10-27 08:13 | P.PNOB_ITS ---
PROCEDURE MANAGER - A/P Postoperative Procedures: Procedures Operation Date: 10/26/24 07:30 Actual Procedure Side Surgeon p Robotic Assisted Hysterectomy with Bilateral Salpingectomy Bilateral Jason Yuen MD Postoperative day: 1 Postoperative status: doing well Postoperative plan: see orders Time Spent With Patient Time: Total time spent is greater than 50% in coordination of care (as documented) at patient's floor/unit and/or counseling patient: Time with patient: less than 15 minutes PROCEDURE MANAGER- PN:Subj Post-Op Subjective Date/time seen: 10/27/24 08:13 Subjective: patient reports feeling better, patient has no complaints and pain is well controlled Exam 2 Const: General: healthy appearing, comfortable and no acute distress Resp: Auscultation: clear to auscultation bilaterally, no rales, no rhonchi and no wheezes Cardio: Rate: regular rate Heart sounds: no click, no murmurs and no rubs GI: Inspection: non-distended Auscultation: normal bowel sounds Extrem: General: normal to inspection, no pedal edema and no calf tenderness PROCEDURE MANAGER - PN: Obj Data Vital Signs Vital Signs: Vital Signs - 24 hr 10/26/24 09:26 10/26/24 09:30 10/26/24 09:45 Temperature 97.9 F Pulse Rate 79 83 81 Respiratory Rate 17 16 16 Blood Pressure 103/75 121/63 112/58 L Pulse Oximetry 100 100 100 Oxygen Delivery Simple Face Mask Simple Face Mask Simple Face Mask Oxygen Flow Rate 8 8 8 10/26/24 10:00 10/26/24 10:15 10/26/24 10:30 Temperature Pulse Rate 74 76 76 Respiratory Rate 13 15 14 Blood Pressure 102/53 L 106/57 L 106/57 L Pulse Oximetry 100 100 99 Oxygen Delivery Simple Face Mask Room Air Room Air Oxygen Flow Rate 8 10/26/24 10:45 10/26/24 11:15 10/26/24 11:32 Temperature 97.8 F Pulse Rate 69 72 Respiratory Rate 12 16 Blood Pressure 103/60 104/48 L Pulse Oximetry 97 97 Oxygen Delivery Room Air Room Air Oxygen Flow Rate 10/26/24 15:19 10/26/24 15:19 10/26/24 19:20 Temperature 98.8 F 97.4 F L Pulse Rate 73 69 Respiratory Rate 18 18 Blood Pressure 94/51 L 98/59 L Pulse Oximetry 97 96 Oxygen Delivery Room Air Oxygen Flow Rate 10/27/24 01:39 10/27/24 06:35 Temperature 99 F 99.1 F Pulse Rate 77 72 Respiratory Rate 18 18 Blood Pressure 105/63 107/55 L Pulse Oximetry 96 98 Oxygen Delivery Oxygen Flow Rate Intake/Output Intake/Output: Intake & Output 10/24/24 10/25/24 10/26/24 10/27/24 23:59 23:59 23:59 23:59 Intake Total 1857 Output Total 1900 Balance -43 Meds/Results Medications: Active Medications Generic Name Dose Route Start Last Admin Trade Name Freq PRN Reason Stop Dose Admin Acetaminophen 1,000 mg 10/26/24 12:00 10/27/24 05:40 Acetaminophen 500 Mg Tablet PO 1,000 mg Q6HR BRAULIO Administration Aripiprazole 5 mg 10/26/24 21:00 10/26/24 20:40 Aripiprazole 5 Mg Tablet PO 5 mg HS BRAULIO Administration Docusate Sodium 100 mg 10/26/24 17:00 10/26/24 17:34 Docusate Sodium 100 Mg Capsule PO 100 mg BID BRAULIO Administration Escitalopram Oxalate 20 mg 10/26/24 21:00 10/26/24 20:40 Escitalopram Oxalate 10 Mg Tablet PO 20 mg HS BRAULIO Administration Naloxone HCl 0.1 mg 10/26/24 11:29 Naloxone Hcl 0.4 Mg/Ml Vial IV PUSH Q2M PRN Respiratory rate less than 10 Ondansetron HCl 4 mg 10/26/24 11:29 Ondansetron Inj 4 Mg/2 Ml Vial IV PUSH Q6H PRN Nausea And Vomiting Oxycodone HCl 5 mg 10/26/24 11:29 10/26/24 17:25 Oxycodone Hcl (*Crx) 5 Mg Tab Ir PO 5 mg Q4H PRN Administration Pain Rated 4-6 Oxycodone HCl 10 mg 10/26/24 11:29 Oxycodone Hcl (*Crx) 5 Mg Tab Ir PO Q6H PRN Pain Rated 7-10 Simethicone 80 mg 10/26/24 12:00 10/26/24 17:25 Simethicone 80 Mg Tab.Chew PO 80 mg TIDWM BRAULIO Administration Labs 10/21/24 08:57
[2024-10-27] MEDS: DOCUSATE SODIUM 100 MG CAPSULE PO (08:30)
[2024-10-27] MEDS: oxyCODONE HCL (*CRX) 5 MG TAB IR PO (08:30)
[2024-10-27] MEDS: SIMETHICONE 80 MG TAB.CHEW PO (08:30)
== END 2024-10-27 09:22 | disposition home or self-care (01) ==
LOC: ANHSURGERY 07:41 → ANHOB2 10-27 08:14 → ANH3MEDSUR 10-28 07:21
PROVIDERS: PCP Family Medicine; Visit Provider Obstetrics & Gynecology
PROC: (CPT 58571; principal; 2024-10-26 07:30)
DX: N92.0 Excessive and frequent menstruation with regular cycle (principal); G89.18 Other acute postprocedural pain; D64.9 Anemia, unspecified; F41.9 Anxiety disorder, unspecified; F32.A Depression, unspecified; F17.210 Nicotine dependence, cigarettes, uncomplicated; F17.290 Nicotine dependence, other tobacco product, uncomplicated; E66.9 Obesity, unspecified; Z68.31 Body mass index [BMI] 31.0-31.9, adult; Z98.890 Other specified postprocedural states; Z90.49 Acquired absence of other specified parts of digestive tract; Z98.84 Bariatric surgery status
CPT/HCPCS: 58571; S2900; 88307; A9270; J0690; J1100; J1885; J2250; J2405; J2704; J3010; J7030; J7120; Q9968